=== PATIENT | male | born 1950 | race Caucasian/White ===

== ENCOUNTER 2018-01-10 13:27 | Day surgery (SDC) | payer MEDICARE ==
[~2018-01-10 13:27] MED LIST: AMLO5TAB2; BACL10TA; BUSP1TAB; COZA100T PO; DIGO0.12 PO; GABA300C5; SOTA120T
[2018-01-10] MEDS ORDERED: IOHEXOL 300 MG/ML 50 ML BTL (for RAD DIAG) OTHER ONE (13:28)
[2018-01-10 13:45] VITALS: BP 134/66; PULSE 66; RESP 18; TEMP 97.6; O2SAT 94
[2018-01-10] MEDS ORDERED: PRAD150C PO (14:06)
[2018-01-10 14:50] VITALS: BP 139/64; PULSE 72; RESP 20; TEMP 98.1; O2SAT 94
--- NOTE | 2018-01-10 15:37 | RADRPT ---
EXAM DATE/TIME: 01/10/2018 14:28 [facility] COMPARISON: No previous studies available for comparison. INDICATIONS : Patient presents with ventriculoperitoneal shunt in need of evaluation. 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 Fluoroscopically guided shuntogram. The risks, benefits and alternatives to the procedure were explained and verbal and written consent w as obtained. The site was prepped in sterile fashion. Full sterile technique was used, including ca p, mask, sterile gloves and gown and a large sterile sheet. Hand hygiene and 2% chlorhexidine and/or betadine/alcohol prep was utilized per protocol for cutaneous antisepsis. The skin and subcutaneous tissues were infiltrated with local anesthetic solution. With fluoroscopic guidance the previously placed shunt was injected with a 23 gauge butterfly needle and positive contrast was injected. Contrast does flow into the ventricular system though this does not freely flow way from the tip of t he catheter and may reflect adhesions. Despite vigorous pumping of the valve contrast could only be s een extending to the level of the diaphragm. CONCLUSION: 1. Patent ventricular limb though adhesions may be present. 2. Possible distal occlusion Ric Pulido MD on January 10, 2018 at 15:33 Board Certified Radiologist. This report was verified electronically.
--- NOTE | 2018-01-10 15:45 | PD.RAD ---
Post Procedure Progress Note Pre Procedure Diagnosis: (1) Shunt malfunction Post Procedure Diagnosis: (1) Shunt malfunction Procedure Date: Jan 10, 2018 Supervising Radiologist: Ric Pulido Proceduralist/Assist: Minor Cornelius RT(R), RT Cassandra(R) Anesthesia: Local Plan of Activity Patient to Unit: ROPU Patient Condition: Good See PACS Report for procedural detail/treatment Imaging Evaluation Shuntogram Ric Pulido MD Jan 10, 2018 15:45
== END 2018-01-10 15:45 | disposition home or self-care (01) ==
LOC: HROP 13:27 → HRIP 13:28 → HROP 15:45
PROVIDERS: ATTEND Neurological Surgery
DX: G91.2 (Idiopathic) normal pressure hydrocephalus (principal); I10 Essential (primary) hypertension; I48.91 Unspecified atrial fibrillation; Z98.2 Presence of cerebrospinal fluid drainage device
CPT/HCPCS: 61070; 75809; Q9967

== ENCOUNTER 2018-01-21 09:42 | Inpatient (IN) | payer MEDICARE ==
[~2018-01-21] VITALS: Ht 193 cm; Wt 111.8 kg
[~2018-01-21 09:42] MED LIST changes: -AMLO5TAB2; +AMLO5TAB2 PO; -BACL10TA; +BACL10TA PO; -GABA300C5; +GABA300C5 PO; +PRAD150C PO; -SOTA120T; +SOTA120T PO
--- NOTE | 2018-01-21 10:51 | RADRPT ---
EXAM DATE/TIME: 01/21/2018 10:25 [facility] COMPARISON: No previous studies available for comparison. INDICATIONS : Evaluate for pneumonia, pneumothorax or communicable disease. Pre op for shunt revision today. MEDICAL HISTORY : asthma SURGICAL HISTORY : shunt ENCOUNTER: Initial ACUITY: 1 day PAIN SCORE: 0/10 LOCATION: Bilateral chest FINDINGS: A single view of the chest demonstrates the lungs to be symmetrically aerated without evidence of mas s, infiltrate or effusion. The cardiomediastinal contours are unremarkable. Osseous structures are intact with some degenerative spurring of the dorsal spine. Shunt tubing traverses the right chest. CONCLUSION: No acute cardiopulmonary process. Chip Sifuentes MD on January 21, 2018 at 10:48 Board Certified Radiologist. This report was verified electronically.
[2018-01-21] MEDS ORDERED: SODIUM CHLORID 0.9% 500 ML IV PRN (11:00)
[2018-01-21] MEDS ORDERED: VANCOMYCIN 1000 MG/NS 250 ML ON-CALL IV SCH ×2 (11:00)
[2018-01-21] MEDS ORDERED: POVIDONE IODINE 5% (ANTISEPSIS KIT) 4 APPLICATIONS EACH NARE PRN (11:00)
[2018-01-21] MEDS ORDERED: CHLORHEXIDINE GLUCONATE 2 % 1 PACK (2 CLOTHS) TOPICAL PRN (11:00)
[2018-01-21] MEDS ORDERED: LACTATED RINGER'S 1000 ML IV PRN (11:00)
[2018-01-21] MEDS: SODIUM CHLOR 0.9% 1000 ML INJ 1,000 ML IV SCH (11:00)
[2018-01-21] MEDS ORDERED: METOPROLOL TARTRATE 25 MG TAB PO PRN (11:00)
[2018-01-21] MEDS ORDERED: PRAD150C PO (11:13)
[2018-01-21] MEDS ORDERED: AMBI10TA PO (11:13)
[2018-01-21] MEDS ORDERED: TOPI50TA7 PO (11:13)
[2018-01-21] MEDS ORDERED: METH20TA PO (11:13)
[2018-01-21] MEDS ORDERED: LOSA100T3 PO (11:13)
[2018-01-21] MEDS ORDERED: HYDR-3583 PO (11:13)
[2018-01-21] MEDS ORDERED: METH20TA3 PO (11:13)
[2018-01-21 11:31] LABS: AUTOMATED NEUTROPHIL # 5.7 TH/MM3 (1.8-7.7); BASOPHIL # 0.1 TH/MM3 (0-0.2); BASOPHIL % 0.8 % (0.0-2.0); EOSINOPHIL # 0.3 TH/MM3 (0-0.4); EOSINOPHIL % 3.2 % (0.0-4.0); HEMATOCRIT 49.8 % (39.0-51.0); HEMOGLOBIN 16.6 GM/DL (13.0-17.0); LYMPH % 15.5 % (9.0-44.0); LYMPHOCYTE # 1.2 TH/MM3 (1.0-4.8); MEAN CELL VOLUME 84.7 FL (80.0-100.0); MEAN CORPUSCULAR HEMOGLOBIN 28.3 PG (27.0-34.0); MEAN CORPUSCULAR HGB CONC 33.4 % (32.0-36.0); MEAN PLATELET VOLUME 7.4 FL (7.0-11.0); MONO % 7.6 % (0.0-8.0); MONOCYTE # 0.6 TH/MM3 (0-0.9); NEUT % 72.9 % (16.0-70.0); PLATELET COUNT 160 TH/MM3 (150-450); RED BLOOD COUNT 5.88 MIL/MM3 (4.50-5.90); RED CELL DISTRIBUTION WIDTH 15.9 % (11.6-17.2); WHITE BLOOD COUNT 7.9 TH/MM3 (4.0-11.0)
[2018-01-21 11:32] LABS: BILIRUBIN, URINE NEG (NEG); BLOOD, URINE NEG (NEG); GLUCOSE,URINE NEG (NEG); HYALINE CAST, URINE 2 /lpf (RARE); KETONE, URINE NEG (NEG); MUCUS URINE FEW /lpf (OCC); NITRITE,URINE NEG (NEG); URINE COLOR YELLOW (YELLW/STRAW); URINE LEUKOCYTE ESTERASE NEG (NEG)
[2018-01-21 11:34] LABS: INTERNATIONAL NORMALIZED RATIO 1.1 RATIO; PROTHROMBIN TIME - PATIENT 11.4 SEC (9.8-11.6)
[2018-01-21] MEDS ORDERED: APREPITANT 40 MG CAP ONE (11:39)
[2018-01-21 11:41] LABS: ALBUMIN 3.7 GM/DL (3.4-5.0); AST (GOT) 14 U/L (15-37); BICARBONATE 24.9 MEQ/L (21.0-32.0); BLOOD UREA NITROGEN 18 MG/DL (7-18); CALCIUM 8.6 MG/DL (8.5-10.1); CHLORIDE 108 MEQ/L (98-107); CREATININE 1.35 MG/DL (0.60-1.30); GLOMERULAR FILTRATION RATE 53 ML/MIN (>89); GLUCOSE,RANDOM 82 MG/DL (74-106); SODIUM (NA) 142 MEQ/L (136-145)
[2018-01-21 11:45] LABS: ALKALINE PHOSPHATASE 55 U/L (45-117); ALT (GPT) 21 U/L (12-78); TOTAL BILIRUBIN ADULT 0.9 MG/DL (0.2-1.0); TOTAL PROTEIN 6.9 GM/DL (6.4-8.2)
[2018-01-21] MEDS ORDERED: SUCCINYLCHOLINE CHLORIDE 100 MG/5 ML SYRINGE IV PUSH ONE (12:00)
[2018-01-21] MEDS ORDERED: ePHEDrine/NS 25 MG/5 ML SYRINGE IV ONE (12:00)
[2018-01-21] MEDS ORDERED: ROCURONIUM INJ 50 MG/5 ML SYRINGE IV PUSH ONE (12:00)
[2018-01-21] MEDS ORDERED: PROPOFOL 200 MG/20 ML AMP IV ONE (12:00)
[2018-01-21] MEDS ORDERED: LIDOCAINE HCL 1% PF 5 ML SYRINGE OTHER ONE (12:00)
[2018-01-21] MEDS ORDERED: LACTATED RINGER'S 1000 ML INJ 1,000 ML IV ONE (12:00)
[2018-01-21] MEDS ORDERED: ONDANSETRON HCL 4 MG/2 ML VIAL IV PUSH ONE (12:00)
[2018-01-21] MEDS ORDERED: NEOSTIGMINE 5 MG/5 ML SYRINGE IV PUSH ONE (12:00)
[2018-01-21] MEDS ORDERED: DEXAMETHASONE SOD PHOS 4 MG/ML VIAL IV ONE (12:00)
[2018-01-21] MEDS ORDERED: GLYCOPYRROLATE 1 MG/5 ML SYRINGE IV PUSH ONE (12:00)
[2018-01-21] MEDS ORDERED: PHENYLEPH/NS 1000 MCG/10 ML SYR IV ONE (12:00)
[2018-01-21] MEDS ORDERED: THROMBIN (TOPICAL) 5,000 UNIT VIAL ONE (13:02)
[2018-01-21] MEDS ORDERED: GELFOAM SIZE 100 ONE (13:02)
[2018-01-21] MEDS ORDERED: GENTAMICIN SULFATE 80 MG/2 ML VIAL ONE (13:02)
[2018-01-21] MEDS ORDERED: LIDOCAINE 1%/EPINEPHrine 1:100,000 SOLN 50 ML VIAL ONE (13:02)
[2018-01-21] MEDS ORDERED: BACITRACIN TOP OINT 15 GM TUBE ONE (13:02)
--- NOTE | 2018-01-21 13:54 | EKG ---
Date Performed: 01/21/2018 Time Performed: 10:42:25 PTAGE: 67 years EKG: SINUS BRADYCARDIA LEFT ANTERIOR FASCICULAR BLOCK NONSPECIFIC ST & T-WAVE ABNORMALITY ABNORM AL ECG PREVIOUS TRACING : 08/22/2006 14.26 DOCTOR: Dennis Batista Interpretating Date/Time 01/21/2018 13:52:33
[2018-01-21] MEDS ORDERED: APREPITANT 40 MG CAP PO ONE (14:00)
[2018-01-21] MEDS ORDERED: DO NOT ADM ANY ANTICOAGULANT DRUGS PRN (15:59)
[2018-01-21] MEDS ORDERED: ACETAMINOPHEN 325 MG TAB PO PRN (16:30)
[2018-01-21] MEDS ORDERED: MORPHINE SULFATE 4 MG/ML INJ IV PUSH PRN (16:30)
[2018-01-21] MEDS ORDERED: ACETAMINOPHEN/HYDROcodone 325 MG/10 MG TAB PO PRN (16:30)
[2018-01-21] MEDS ORDERED: ceFAZolin 2 GM PREMIX 50 ML IV SCH (16:30)
--- NOTE | 2018-01-21 16:36 | PD.OP ---
Operative Report Date of Surgery: January 21, 2018 Preoperative Diagnosis: ASPHALT LAYER shunt malfunction Postoperative Diagnosis: ASPHALT LAYER shunt malfunction Procedure: Ventriculoperitoneal shunt Anesthesia: general endotracheal Surgeon: Daniel Villanueva Hot Worker(s): Sandrita garg Operation and Findings: INDICATIONS FOR PROCEDURE: Mr Dalton is a 67 year old male with history of hydrocephalus and a priorly placed ASPHALT LAYER shunt who presented with progressive gait imbalance and short term memory loss, and classic symptoms of shunt malfunrction. His condition was getting progressively worse. He underwent evaluation with a shuntogram which demonstrated occlusion of his shunt. A ventriculoperitoneal shunt was indicated The [id number] details of the procedure, its indications, alternatives, risks , and potential complications of the surgery were fully discussed with the patient and his family. They fully understood. All their questions were answered. No guarantees were given. They voiced requesting the surgery and signed informed consent.They were offered the alternative of continuing nonsurgical treatment. DETAILS OF THE SURGICAL PROCEDURE: After the induction of general anesthesia, endotracheal intubation was performed. A Whitfield catheter, bilateral ARI hose and sequential compression devices were placed and kept throughout the procedure. The patient was positioned supine on a 30-80 table with the head over a gel doughnut. All pressure points were carefully padded with eggcrate mattress. The right frontotemporal parietal area was shaved prepped and draped in the usual sterile fashion, as well as the neck, chest and abdomen. Initially, an incision was made adjacent to his prior shunt with a #10 blade, and his prior valve was exposed with the Bovie. The valve was then disconnected from the [peritoneal catheter, and there was minimal flow from the valve. The peritoneal catheter was assessed using a manometer, there was a slow flow with clossing pressure of 15 cm H20, despite flushing the catheter. The valve was then disconnected from the ventricular catheter, with only minimal CSF flow. I attempted to remove and replace the old ventricular catheter , but it was very scared down. The initial intention was to replace the ventricular catheter by a new catheter following the same tract. The catheter, however, could not be pulled out of the brain despite considerable force. Due to the concern of causing intraventricular hemorrhage, it was not deemed safe to remove the old ventricular catheter which appeared to be attached to the choroid plexus. Placement of a new ventricular catheter became necessary An incision was made in the patient's right upper quadrant with a #10 blade and the dissection was carried out through the subcutaneous tissue and Christo's fascia. The rectus sheath was carefully opened with Metzenbaum scissors and the rectus muscles were split along its fibers. The posterior rectus sheath was elevated and carefully opened. The peritoneum was elevated with mosquitoes and opened in the standard fashion. The peritoneal cavity was visualized and exposed. A pursestring suture was placed around the peritoneal opening. Using a tunneler a subcutaneous tunnel was created connecting the abdominal incision with the planned head incision. A small incision was made in the right frontal area and a self-retaining retractor was placed in the incision. An entry point for the catheter was selected 90 mm posterior to the supraorbital rim and 25 mm lateral to the midline. A Midas Jossue was used to create the flavio hole. The dura was coagulated with the bipolar in a cruciform fashion. A peritoneal catheter was placed in the subcutaneous tunnel previously created and a pocket was created underneath the galea for placement of the valve. A Robinhood programmable valve has calibrated at a pressure of 100 mmHg and flushed according to the division roadmaster's instructions. The valve was secured to the proximal end of the peritoneal catheter using a 2-0 silk. Then, a ventricular catheter was advanced into the ventricular system. Due to the small size of the ventricles, it was difficult to obtain good flow of cerebrospinal fluid in the standard position requiring 3 different attempts. CSF with an increased opening pressure was finally obtained The catheter was connected to the valve and the connection secured with a 2-0 silk. Cerebrospinal fluid was noted to drip through the distal end of the peritoneal catheter. The old shunt system was connected and left in place, as it was was partially functional and was deemed necessary due to the size of the ventricles. The peritoneal catheter was placed in the peritoneal cavity under direct visualization. The pursestring suture was carefully adjusted with special care not to strangulate the catheter. The rectus sheath was closed using interrupted 2-0 Vicryl suture. The Christo's fascia was approximated with 3-0 Vicryl, and the subcutaneous with 3-0 Vicryl. The skin was closed with running subcuticular 4-0 Vicryl in the abdomen. The skin incision was closed using interrupted 3-0 Vicryl for the galea and katlin to the skin. At the end of the procedure, the sponge, needle and instrument counts were all correct. The estimated blood was less than 50 cc. No blood transfusion was given. The patient received preoperative prophylactic antibiotics. The patient was then extubated and transferred to the recovery room in stable condition. Daniel Villanueva MD January 21, 2018 16:36
[2018-01-21] MEDS: NS + KCL 20 MEQ INJ 1,000 ML IV SCH (16:48)
[2018-01-21] MEDS ORDERED: *morphine SULFATE 4 MG/ML PERIprocedure ONLY ONE ×3 (16:50→18:29)
[2018-01-21] MEDS ORDERED: PILL SPLITTER OTHER PRN (17:00)
[2018-01-21] MEDS: TOPIRAMATE 25 MG TAB PO SCH (18:56)
[2018-01-21] MEDS: BACLOFEN 10 MG TAB PO SCH (18:56)
[2018-01-21] MEDS: ACETAMINOPHEN/HYDROcodone 325 MG/10 MG TAB PO PRN (18:57)
[2018-01-21] MEDS: SOTALOL HCL 80 MG TAB PO SCH (19:29)
[2018-01-21 19:44] LABS: TOTAL PROTEIN,CSF 78.6 MG/DL (15.0-45.0)
[2018-01-21 20:22] VITALS: BP 124/58; PULSE 62; RESP 20; TEMP 97.4; O2SAT 96
[2018-01-21 21:00] LABS: CSF EOSINOPHILS 1 %; CSF LYMPHOCYTES 19 %; CSF MONOCYTES 4 %; CSF NEUTROPHILS 76 %
[2018-01-21 21:02] LABS: RBC TUBE #1 17569 /MM3; SUPERNATE COLOR TUBE #1 CLEAR (CLEAR); VOLUME TUBE # 1 2.8 ML; WBC TUBE #1 133 /MM3 (0-10)
[2018-01-21] MEDS ORDERED: ONDANSETRON HCL 4 MG/2 ML VIAL IV PUSH PRN (21:15)
[2018-01-21] MEDS: GABAPENTIN 300 MG CAP PO SCH (21:39)
[2018-01-21 22:12] VITALS: PULSE 65
[2018-01-22] VITALS (9 sets, daily range): BP systolic 113–135; BP diastolic 55–64; PULSE 52–74; RESP 18–20; TEMP 97.5–98.8; O2SAT 93–97
[2018-01-22] MEDS: VANCOMYCIN 1,000 MG/NS 250 ML IV SCH ×4 (02:20→17:01)
[2018-01-22] MEDS: NS + KCL 20 MEQ INJ 1,000 ML IV SCH (02:20)
[2018-01-22] MEDS: ACETAMINOPHEN/HYDROcodone 325 MG/10 MG TAB PO PRN ×2 (05:14→21:35)
[2018-01-22] MEDS: METHYLPHENIDATE HCL 10 MG TAB PO SCH ×2 (06:44→16:44)
[2018-01-22] MEDS ORDERED: HYDR-3516 PO (09:28)
[2018-01-22] MEDS: GABAPENTIN 300 MG CAP PO SCH ×2 (09:51→21:35)
[2018-01-22] MEDS: LOSARTAN 50 MG TAB PO SCH (09:51)
[2018-01-22] MEDS: DIGOXIN 0.125 MG TAB PO SCH (09:51)
[2018-01-22] MEDS: PANTOPRAZOLE SODIUM 40 MG VIAL IVP SCH (09:51)
[2018-01-22] MEDS: BACLOFEN 10 MG TAB PO SCH ×4 (09:52→18:00)
[2018-01-22] MEDS: SOTALOL HCL 80 MG TAB PO SCH ×3 (09:52→17:06)
[2018-01-22] MEDS: TOPIRAMATE 25 MG TAB PO SCH ×3 (09:52→17:05)
--- NOTE | 2018-01-22 10:57 | HHI.NSPN ---
(Rose Pehlps) Note Status Status: Progress Note (Rose Phelps) Interval History Interval History Mr. Dalton is a 67-year-old male who underwent placement of new right frontal ventriculoperitoneal shunt for normal pressure hydrocephalus with a nonfunctioning HATCHERY WORKER shunt on 01/21/18. 01/22: Awaiting follow-up CT brain. Patient reports of acute onset of new left upper extremity weakness. (Rose Phelps) Labs, Micro, & Vital Signs Results Date Time Temp Pulse Resp B/P (MAP) Pulse Ox O2 Delivery O2 Flow Rate FiO2 01/22/18 07:45 98.1 56 19 123/60 (81) 97 01/22/18 05:29 97.8 59 18 113/59 (77) 97 01/22/18 03:58 52 01/22/18 00:54 21 01/22/18 00:24 98.8 60 18 114/55 (74) 95 01/22/18 00:00 57 01/21/18 22:12 65 01/21/18 20:22 97.4 62 20 124/58 (80) 96 01/21/18 18:30 98.4 65 16 121/58 (79) 98 Nasal Cannula 2 01/21/18 18:00 58 18 114/57 (76) 97 Nasal Cannula 2 01/21/18 17:30 63 18 125/59 (81) 98 Nasal Cannula 2 01/21/18 17:00 48 12 131/60 (83) 99 Nasal Cannula 2 01/21/18 16:45 48 12 125/58 (80) 100 Nasal Cannula 2 01/21/18 16:30 54 18 123/59 (80) 100 Nasal Cannula 2 01/21/18 16:15 51 12 125/58 (80) 100 Nasal Cannula 3 01/21/18 16:00 97.6 60 12 126/61 (82) 100 Nasal Cannula 3 01/21/18 11:17 97.9 60 16 119/68 (85) 96 Constitutional Vital Signs Date Time Temp Pulse Resp B/P (MAP) Pulse Ox O2 Delivery O2 Flow Rate FiO2 01/22/18 07:45 98.1 56 19 123/60 (81) 97 01/22/18 05:29 97.8 59 18 113/59 (77) 97 01/22/18 03:58 52 01/22/18 00:54 21 01/22/18 00:24 98.8 60 18 114/55 (74) 95 01/22/18 00:00 57 01/21/18 22:12 65 01/21/18 20:22 97.4 62 20 124/58 (80) 96 01/21/18 18:30 98.4 65 16 121/58 (79) 98 Nasal Cannula 2 01/21/18 18:00 58 18 114/57 (76) 97 Nasal Cannula 2 01/21/18 17:30 63 18 125/59 (81) 98 Nasal Cannula 2 01/21/18 17:00 48 12 131/60 (83) 99 Nasal Cannula 2 01/21/18 16:45 48 12 125/58 (80) 100 Nasal Cannula 2 01/21/18 16:30 54 18 123/59 (80) 100 Nasal Cannula 2 01/21/18 16:15 51 12 125/58 (80) 100 Nasal Cannula 3 01/21/18 16:00 97.6 60 12 126/61 (82) 100 Nasal Cannula 3 01/21/18 11:17 97.9 60 16 119/68 (85) 96 (Rose Phelps) Physical Exam Mr. Dalton is alert, awake and oriented to time, place and person. Speech is fluent. Cranial nerve examination: pupils equal, round and reactive to light. Extra- ocular movements are intact. Facial motor are normal and symmetrical. Sternocleidomastoid and trapezius muscles are symmetrical. Other cranial nerves are intact. Wound bandaged, clean and dry. Neck is soft and supple with a good range of motion without pain. Muscle strength 4 left deltoid, 4-/5 biceps, triceps, fork assembler, moves right upper and bilateral lower extremities with good strength. Storm's negative bilaterally bilateral plantar flexion response (Rose Phelps) Medications Current Medications Current Medications Medications (Trade) Dose Ordered Sig/Mojgan Route PRN Reason Start Time Stop Time Status Last Admin Dose Admin Vancomycin HCl 1000 mg/Sodium Chloride 250 ml @ 250 mls/hr PLYWOOD STOCK GRADER IV 01/21/18 11:00 01/24/18 10:59 01/21/18 13:31 Sodium Chloride 1,000 ml @ 30 mls/hr Q24H IV 01/21/18 11:00 Lactated Ringer's 1,000 ml @ 30 mls/hr Q24H PRN IV SEE LABEL COMMENTS 01/21/18 11:00 01/24/18 10:59 01/21/18 11:00 Sodium Chloride 500 ml @ 30 mls/hr [id number] PRN IV SEE LABEL COMMENTS 01/21/18 11:00 01/24/18 10:59 Metoprolol Tartrate (Lopressor) 25 mg PLYWOOD STOCK GRADER PRN PO SEE LABEL COMMENTS 01/21/18 11:00 01/24/18 10:59 Povidone Iodine (Betadine 5% Antisepsis Kit) 1 applic PLYWOOD STOCK GRADER PRN EACH NARE SEE LABEL COMMENTS 01/21/18 11:00 01/24/18 10:59 01/21/18 11:00 Chlorhexidine Gluconate (Chlorhexidine 2% Cloth) 3 pack PLYWOOD STOCK GRADER PRN TOPICAL SEE LABEL COMMENTS 01/21/18 11:00 01/24/18 10:59 01/21/18 10:45 Potassium Chloride/Sodium Chloride 1,000 ml @ 100 mls/hr Q10H IV 01/21/18 16:25 01/22/18 02:20 Pantoprazole Sodium (Protonix Inj) 40 mg DAILY IVP 01/22/18 09:00 01/22/18 09:51 Acetaminophen/ Hydrocodone Bitart (Dougherty 10-325 Mg) 1 tab Q4H PRN PO PAIN SCALE 1 TO 5 01/21/18 16:30 Acetaminophen/ Hydrocodone Bitart (Dougherty 10-325 Mg) 2 tab Q4H PRN PO PAIN SCALE 6 TO 10 01/21/18 16:30 01/22/18 05:14 Morphine Sulfate (Morphine Inj) 2 mg Q2H PRN IV PUSH PAIN SCALE 1 TO 6 01/21/18 16:30 Morphine Sulfate (Morphine Inj) 4 mg Q2H PRN IV PUSH PAIN SCALE 7 TO 10 01/21/18 16:30 Acetaminophen (Tylenol) 650 mg Q4H PRN PO TEMPERATURE > 101.5 F 01/21/18 16:30 Amlodipine Besylate (Norvasc) 5 mg DAILY PO 01/22/18 09:00 Baclofen (Lioresal) 20 mg TID PO 01/21/18 18:00 01/22/18 09:52 Digoxin (Lanoxin) 0.125 mg DAILY PO 01/22/18 09:00 01/22/18 09:51 Gabapentin (Neurontin) 600 mg BID PO 01/21/18 21:00 01/22/18 09:51 Methylphenidate HCl (Ritalin Ir) 20 mg BIDAC PO 01/22/18 07:00 01/22/18 06:44 Topiramate (Topamax) 50 mg TID PO 01/21/18 18:00 01/22/18 09:52 Zolpidem Tartrate (Ambien) 10 mg HS PRN PO INSOMNIA 01/21/18 16:30 Hydrochlorothiazide (Microzide) 12.5 mg DAILY PO 01/22/18 09:00 Methylphenidate HCl (Methylin Sr) 20 mg TIDAC PO 01/21/18 17:00 Sotalol HCl (Betapace) 120 mg TID PO 01/21/18 18:00 01/22/18 09:52 Miscellaneous Information ([facility] [place] [facility]) ALL NURSING DEPARTME... UNSCH PRN .XX SEE LABEL COMMENTS 01/21/18 15:59 01/22/18 15:58 Miscellaneous (Pill Splitter) 1 ea UNSCH PRN OTHER SEE LABEL COMMENTS 01/21/18 17:00 Losartan Potassium (Cozaar) 100 mg DAILY PO 01/22/18 09:00 01/22/18 09:51 Vancomycin HCl 1000 mg/Sodium Chloride 250 ml @ 250 mls/hr Q12H IV 01/22/18 02:00 01/22/18 14:59 01/22/18 02:20 Ondansetron HCl (Zofran Inj) 4 mg Q8H PRN IV PUSH NAUSEA 01/21/18 21:15 (Rose Phelps) Medical Decision Making MDM Remarks 67 y/o male status post placement of new right frontal HATCHERY WORKER shunt due to nonfunctioning shunt Normal pressure hydrocephalus Acute left upper extremity paresis (Rose Phelps) Plan Plan Remarks Awaiting follow-up CT brain PT, start OT SCDs and teds for DVT prophylaxis Protonix for ulcer prophylaxis Change surgical dressing (Rose Phelps) Attending Statement The exam, history, and the medical decision-making described in the above note were completed with the assistance of the mid-level provider. I reviewed and agree with the findings presented. I attest that I had a [id number] encounter with the patient on the same day, and personally performed and documented my assessment and findings in the medical record. (Daniel Villanueva MD) Rose Phelps January 22, 2018 10:57 Daniel Villanueva MD January 25, 2018 13:33
--- NOTE | 2018-01-22 10:58 | RADRPT ---
EXAM DATE/TIME: 01/22/2018 10:32 [facility] COMPARISON: No previous studies available for comparison. INDICATIONS : Post-operative evaluation of shunt revision. RADIATION DOSE: 56.35 CTDIvol (mGy) MEDICAL HISTORY : Cardiovascular disease. Hypertension. 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 ENCOUNTER: Initial ACUITY: 1 day PAIN SCALE: 2/10 LOCATION: Bilateral cranial TECHNIQUE: Multiple contiguous axial images were obtained of the head. Using automated exposure control and adj ustment of the mA and/or kV according to patient size, radiation dose was kept as low as reasonably a chievable to obtain optimal diagnostic quality images. DICOM format image data is available electro nically for review and comparison. FINDINGS: A. right frontal ventriculostomy appears recent with some pneumocephalus present. The catheter extend s into the posterior horn of the left lateral ventricle. A right parietal shunt is also present exten ding into the trigone region on the ipsilateral right side. The ventricles are decompressed. There is no evidence of brain mass or hemorrhage. There is nothing to suggest acute infarction or other acute process. Extracranial structures are otherwise grossly benign and intact. CONCLUSION: Satisfactory appearance post ventriculostomy Jhony Linn MD on January 22, 2018 at 10:52 Board Certified Radiologist. This report was verified electronically.
[2018-01-22] MEDS: MORPHINE SULFATE 4 MG/ML INJ IV PUSH PRN ×2 (11:08→16:37)
[2018-01-22] MEDS: METHYLPHENIDATE HCL 10 MG EXTENDED RELEASE TAB PO SCH ×3 (11:28→18:53)
[2018-01-22] MEDS: amLODIPine BESYLATE 5 MG TAB PO SCH (11:35)
[2018-01-22] MEDS: HYDROCHLOROTHIAZIDE 12.5 MG CAP PO SCH (11:35)
[2018-01-22] MEDS: DEXAMETHASONE SOD PHOS 4 MG/ML VIAL IV PUSH SCH ×2 (17:05→23:27)
[2018-01-22] MEDS: ZOLPIDEM TARTRATE 10 MG TAB PO PRN (23:26)
[2018-01-23] VITALS (8 sets, daily range): BP systolic 115–169; BP diastolic 59–78; PULSE 55–105; RESP 18–22; TEMP 97.8–98.4; O2SAT 91–100
[2018-01-23] MEDS: ACETAMINOPHEN/HYDROcodone 325 MG/10 MG TAB PO PRN ×4 (06:44→21:35)
[2018-01-23] MEDS: METHYLPHENIDATE HCL 10 MG TAB PO SCH ×2 (06:44→15:18)
[2018-01-23] MEDS: DEXAMETHASONE SOD PHOS 4 MG/ML VIAL IV PUSH SCH ×3 (06:44→17:11)
[2018-01-23] MEDS: PANTOPRAZOLE SODIUM 40 MG VIAL IVP SCH (08:41)
[2018-01-23] MEDS: BACLOFEN 10 MG TAB PO SCH ×3 (08:41→17:11)
[2018-01-23] MEDS: LOSARTAN 50 MG TAB PO SCH (08:42)
[2018-01-23] MEDS: SOTALOL HCL 80 MG TAB PO SCH ×3 (08:42→17:11)
[2018-01-23] MEDS: HYDROCHLOROTHIAZIDE 12.5 MG CAP PO SCH (08:43)
[2018-01-23] MEDS: TOPIRAMATE 25 MG TAB PO SCH ×3 (08:43→17:11)
[2018-01-23] MEDS: GABAPENTIN 300 MG CAP PO SCH ×2 (08:43→21:37)
[2018-01-23] MEDS: DIGOXIN 0.125 MG TAB PO SCH (08:44)
[2018-01-23] MEDS: METHYLPHENIDATE HCL 10 MG EXTENDED RELEASE TAB PO SCH ×3 (08:44→17:11)
[2018-01-23] MEDS: amLODIPine BESYLATE 5 MG TAB PO SCH (08:47)
--- NOTE | 2018-01-23 10:33 | RADRPT ---
EXAM DATE/TIME: 01/23/2018 10:00 [facility] COMPARISON: No previous studies available for comparison. INDICATIONS : Left upper extremity weakness since shunt revision yesterday. MEDICAL HISTORY : Hypertension. Renal calculi. Hydrocephalus. SURGICAL HISTORY : Fusion, cervical. Umbilical hernia repair. Shunt placement and revision. Right ankle repair. Sinu s surgery. Kidney stone removal. ENCOUNTER: Subsequent ACUITY: 2 day PAIN SCORE: 0/10 LOCATION: head. TECHNIQUE: Multiplanar, multisequence MRI of the brain was performed without contrast. FINDINGS: There is a right frontal ventriculostomy with the tip in the posterior horn of the left lateral ventr icle. There is also a right parietal shunt extending into the right trigone region. There is some abn ormal signal around the right frontal tube track and also around the tract extending into the right b derik ganglia which may be from previous shunt. No recent infarct. On the sagittal images focal areas of presumed encephalomalacia is seen in the body and posterior asp ect of the corpus callosum. There are mild chronic white matter ischemic changes. CONCLUSION: 1. Multiple shunts as above. There is some linear signal abnormality also extending into the right ba holly ganglia probably from previous shunt attempt. No mass effect or shift. No hydrocephalus. 2 focal areas of presumed encephalomalacia in the body and posterior aspect of the corpus callosum. Zen Goldsmith MD on January 23, 2018 at 10:24 Board Certified Radiologist. This report was verified electronically.
[2018-01-23] MEDS: SODIUM CHLOR 0.9% 1000 ML INJ 1,000 ML IV SCH (10:47)
--- NOTE | 2018-01-23 11:09 | RADRPT ---
EXAM DATE/TIME: 01/23/2018 10:00 [facility] COMPARISON: No previous studies available for comparison. INDICATIONS : Left upper extremity weakness since shunt revision yesterday. MEDICAL HISTORY : Hypertension. Renal calculi. Hydrocephalus. SURGICAL HISTORY : Fusion, cervical. Shunt placement and revision. Right ankle repair. Sinus surgery. Kidney ston e removal. ENCOUNTER: Subsequent ACUITY: 2 day PAIN SCORE: 0/10 LOCATION: neck. TECHNIQUE: Multiplanar, multisequence MRI examination of the cervical spine was performed. FINDINGS: At C2-3 there is a mild disc protrusion. No stenosis. At C3-4 there is a posterior disc osteophyte complex effacing the thecal sac without cord compression . Mild foraminal stenosis. At C4-5 posterior disc osteophyte complex results in mild AP canal stenosis and mild flattening of th e cord. Mild foraminal encroachment. At C5-6 there is previous fusion without stenosis. At C6-7 there is a mild posterior disc protrusion with mild AP canal stenosis and mild impression on the anterior surface the cord. No significant foraminal stenosis. At C7-T1 there is a mild central bulge or protrusion with mild impression on the anterior surface of the cord. No foraminal stenosis. CONCLUSION: 1. At C4-5, and C6-7 and C7-T1 there are small posterior disc protrusions and osteophytic ridging res ulting in mild AP canal stenosis and flattening of the anterior surface of the cord. 2. Previous fusion at C5-6 without stenosis. 3. Normal alignment of the cervical spine. No cord signal abnormality. Zen Goldsmith MD on January 23, 2018 at 11:04 Board Certified Radiologist. This report was verified electronically.
--- NOTE | 2018-01-23 11:49 | HHI.NSPN ---
(Rose Phelps) Note Status Status: Progress Note (Daniel Villanueva MD) Interval History Interval History Mr. Dalton is a 67-year-old male who underwent placement of new right frontal ventriculoperitoneal shunt for normal pressure hydrocephalus with a nonfunctioning DEPLOYMENT TECHNICIAN shunt on 01/21/18. 01/22: Awaiting follow-up CT brain. Patient reports of acute onset of new left upper extremity weakness. 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 completed MRI Brain and Cervical spine. (Rose Phelps) Labs, Micro, & Vital Signs Results Date Time Temp Pulse Resp B/P (MAP) Pulse Ox O2 Delivery O2 Flow Rate FiO2 01/23/18 08:00 97.8 61 18 135/64 (87) 96 01/23/18 07:10 98.2 55 19 128/62 (84) 100 01/23/18 00:30 60 01/23/18 00:00 97.8 65 22 115/59 (77) 96 01/22/18 21:26 58 01/22/18 20:00 98.4 68 18 135/64 (87) 96 01/22/18 15:38 97.5 74 20 118/58 (78) 95 01/22/18 12:11 98.3 64 20 117/57 (77) 93 Constitutional Vital Signs Date Time Temp Pulse Resp B/P (MAP) Pulse Ox O2 Delivery O2 Flow Rate FiO2 01/23/18 08:00 97.8 61 18 135/64 (87) 96 01/23/18 07:10 98.2 55 19 128/62 (84) 100 01/23/18 00:30 60 01/23/18 00:00 97.8 65 22 115/59 (77) 96 01/22/18 21:26 58 01/22/18 20:00 98.4 68 18 135/64 (87) 96 01/22/18 15:38 97.5 74 20 118/58 (78) 95 01/22/18 12:11 98.3 64 20 117/57 (77) 93 (Rose Phelps) Physical Exam Mr. Dalton is alert, awake and oriented to time, place and person. Speech is fluent. Cranial nerve examination: pupils equal, round and reactive to light. Extra- ocular movements are intact. Facial motor are normal and symmetrical. Sternocleidomastoid and trapezius muscles are symmetrical. Other cranial nerves are intact. Wound bandaged, clean and dry. Neck is soft and supple with a good range of motion without pain. 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 Storm's negative bilaterally, Plantars flexors bilaterally. bilateral plantar flexion response (Rose Phelps) Medications Current Medications Current Medications Medications (Trade) Dose Ordered Sig/Mojgan Route PRN Reason Start Time Stop Time Status Last Admin Dose Admin Vancomycin HCl 1000 mg/Sodium Chloride 250 ml @ 250 mls/hr UPS DRIVER IV 01/21/18 11:00 01/24/18 10:59 01/21/18 13:31 Sodium Chloride 1,000 ml @ 30 mls/hr Q24H IV 01/21/18 11:00 01/23/18 10:47 Lactated Ringer's 1,000 ml @ 0 mls/hr Q24H PRN IV SEE LABEL COMMENTS 01/21/18 11:00 01/21/18 11:00 Sodium Chloride 500 ml @ 30 mls/hr [id number] PRN IV SEE LABEL COMMENTS 01/21/18 11:00 01/24/18 10:59 Metoprolol Tartrate (Lopressor) 25 mg UPS DRIVER PRN PO SEE LABEL COMMENTS 01/21/18 11:00 01/24/18 10:59 Povidone Iodine (Betadine 5% Antisepsis Kit) 1 applic UPS DRIVER PRN EACH NARE SEE LABEL COMMENTS 01/21/18 11:00 01/24/18 10:59 01/21/18 11:00 Chlorhexidine Gluconate (Chlorhexidine 2% Cloth) 3 pack UPS DRIVER PRN TOPICAL SEE LABEL COMMENTS 01/21/18 11:00 01/24/18 10:59 01/21/18 10:45 Pantoprazole Sodium (Protonix Inj) 40 mg DAILY IVP 01/22/18 09:00 01/23/18 08:41 Acetaminophen/ Hydrocodone Bitart ([place] 10-325 Mg) 1 tab Q4H PRN PO PAIN SCALE 1 TO 5 01/21/18 16:30 Acetaminophen/ Hydrocodone Bitart ([place] 10-325 Mg) 2 tab Q4H PRN PO PAIN SCALE 6 TO 10 01/21/18 16:30 01/23/18 11:30 Morphine Sulfate (Morphine Inj) 2 mg Q2H PRN IV PUSH PAIN SCALE 1 TO 6 01/21/18 16:30 01/22/18 16:37 Morphine Sulfate (Morphine Inj) 4 mg Q2H PRN IV PUSH PAIN SCALE 7 TO 10 01/21/18 16:30 Acetaminophen (Tylenol) 650 mg Q4H PRN PO TEMPERATURE > 101.5 F 01/21/18 16:30 Amlodipine Besylate (Norvasc) 5 mg DAILY PO 01/22/18 09:00 01/23/18 08:47 Baclofen (Lioresal) 20 mg TID PO 01/21/18 18:00 01/23/18 08:41 Digoxin (Lanoxin) 0.125 mg DAILY PO 01/22/18 09:00 01/23/18 08:44 Gabapentin (Neurontin) 600 mg BID PO 01/21/18 21:00 01/23/18 08:43 Methylphenidate HCl (Ritalin Ir) 20 mg BIDAC PO 01/22/18 07:00 01/23/18 06:44 Topiramate (Topamax) 50 mg TID PO 01/21/18 18:00 01/23/18 08:43 Zolpidem Tartrate (Ambien) 10 mg HS PRN PO INSOMNIA 01/21/18 16:30 01/22/18 23:26 Hydrochlorothiazide (Microzide) 12.5 mg DAILY PO 01/22/18 09:00 01/23/18 08:43 Methylphenidate HCl (Methylin Sr) 20 mg TIDAC PO 01/21/18 17:00 01/23/18 11:30 Sotalol HCl (Betapace) 120 mg TID PO 01/21/18 18:00 01/23/18 08:42 Miscellaneous (Pill Splitter) 1 ea UNSCH PRN OTHER SEE LABEL COMMENTS 01/21/18 17:00 Losartan Potassium (Cozaar) 100 mg DAILY PO 01/22/18 09:00 01/23/18 08:42 Ondansetron HCl (Zofran Inj) 4 mg Q8H PRN IV PUSH NAUSEA 01/21/18 21:15 Dexamethasone Sodium Phosphate (Decadron Inj) 4 mg Q6HR IV PUSH 01/22/18 18:00 01/23/18 11:31 (Rose Phelps) Medical Decision Making MDM Remarks 67 y/o male status post placement of new right frontal DEPLOYMENT TECHNICIAN shunt due to nonfunctioning shunt Normal pressure hydrocephalus Acute left upper extremity paresis (Rose Phelps) Plan Plan Remarks MRI Brain and C-spine reviewed by Dr. Villanueva, no acute CVA or significant stenosis, reprogrammed new DEPLOYMENT TECHNICIAN shunt to 100 mm H20, unable to reprogram old shunt due to incision PT, OT eval, dw nursing bladder scan prn if cannot void Dr. Vill[facility]ue[facility] (Rose Phelps) Attending Statement The exam, history, and the medical decision-making described in the above note were completed with the assistance of the mid-level provider. I reviewed and agree with the findings presented. I attest that I had a [id number] encounter with the patient on the same day, and personally performed and documented my assessment and findings in the medical record. (Daniel Villanueva MD) Rose Phelps January 23, 2018 11:49 Daniel Villanueva MD January 25, 2018 13:35
[2018-01-24] VITALS (8 sets, daily range): BP systolic 112–162; BP diastolic 62–77; PULSE 54–77; RESP 18; TEMP 97.3–98.7; O2SAT 94–99
[2018-01-24] MEDS: DEXAMETHASONE SOD PHOS 4 MG/ML VIAL IV PUSH SCH ×5 (00:10→23:07)
[2018-01-24] MEDS: ZOLPIDEM TARTRATE 10 MG TAB PO PRN (02:23)
[2018-01-24] MEDS: METHYLPHENIDATE HCL 10 MG TAB PO SCH ×2 (05:47→15:59)
[2018-01-24] MEDS: GABAPENTIN 300 MG CAP PO SCH ×3 (08:49→17:14)
[2018-01-24] MEDS: PANTOPRAZOLE SODIUM 40 MG VIAL IVP SCH (08:49)
[2018-01-24] MEDS: LOSARTAN 50 MG TAB PO SCH (08:50)
[2018-01-24] MEDS: amLODIPine BESYLATE 5 MG TAB PO SCH (08:50)
[2018-01-24] MEDS: HYDROCHLOROTHIAZIDE 12.5 MG CAP PO SCH (08:50)
[2018-01-24] MEDS: METHYLPHENIDATE HCL 10 MG EXTENDED RELEASE TAB PO SCH ×3 (08:50→17:14)
[2018-01-24] MEDS: BACLOFEN 10 MG TAB PO SCH ×3 (08:50→17:14)
[2018-01-24] MEDS: TOPIRAMATE 25 MG TAB PO SCH ×3 (08:50→17:14)
[2018-01-24] MEDS: DIGOXIN 0.125 MG TAB PO SCH (08:50)
[2018-01-24] MEDS: SOTALOL HCL 80 MG TAB PO SCH ×3 (08:50→17:14)
[2018-01-24] MEDS: SODIUM CHLOR 0.9% 1000 ML INJ 1,000 ML IV SCH (10:16)
--- NOTE | 2018-01-24 10:58 | HHI.NSPN ---
(Rose Phelps) Note Status Status: Progress Note (Rose Phelps) Interval History Interval History Mr. Dalton is a 67-year-old male who underwent placement of new right frontal ventriculoperitoneal shunt for normal pressure hydrocephalus with a nonfunctioning LATHE SET UP OPERATOR shunt on 01/21/18. 01/22: Awaiting follow-up CT brain. Patient reports of acute onset of new left upper extremity weakness. 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 completed MRI Brain and Cervical spine. 01/24: LATHE SET UP OPERATOR shunt reprogrammed yesterday to 100 mm H20. Today patient feels there has been some improvement in left arm weakness, ambulated with PT this morning. He is voiding. (Rose Phelps) Labs, Micro, & Vital Signs Results Date Time Temp Pulse Resp B/P (MAP) Pulse Ox O2 Delivery O2 Flow Rate FiO2 01/24/18 09:00 75 01/24/18 08:00 98.7 75 18 128/62 (84) 96 01/24/18 04:00 97.3 56 18 112/64 (80) 96 01/24/18 00:00 98.7 62 18 142/64 (90) 96 01/24/18 00:00 64 01/23/18 20:00 98.4 105 18 132/59 (83) 91 01/23/18 16:30 72 01/23/18 16:15 98.4 66 18 146/65 (92) 94 01/23/18 12:06 98.1 69 18 169/78 (108) 95 Constitutional Vital Signs Date Time Temp Pulse Resp B/P (MAP) Pulse Ox O2 Delivery O2 Flow Rate FiO2 01/24/18 09:00 75 01/24/18 08:00 98.7 75 18 128/62 (84) 96 01/24/18 04:00 97.3 56 18 112/64 (80) 96 01/24/18 00:00 98.7 62 18 142/64 (90) 96 01/24/18 00:00 64 01/23/18 20:00 98.4 105 18 132/59 (83) 91 01/23/18 16:30 72 01/23/18 16:15 98.4 66 18 146/65 (92) 94 01/23/18 12:06 98.1 69 18 169/78 (108) 95 (Rose Phelps) Review of Systems Gastrointestinal: DENIES: Vomiting Neurologic: COMPLAINS OF: Localized weakness, Paresthesias (Rose Phelps) Physical Exam Mr. Dalton is alert, awake and oriented to time, place and person. Speech is fluent. Cranial nerve examination: pupils equal, round and reactive to light. Extra- ocular movements are intact. Facial motor are normal and symmetrical. Sternocleidomastoid and trapezius muscles are symmetrical. Other cranial nerves are intact. Wound bandaged with primapore dressing, clean and dry. Neck is soft and supple with a good range of motion without pain. Muscle strength 4 left deltoid, 4-/5 biceps, triceps, crabber, moves right upper and bilateral lower extremities with good strength. Storm's negative bilaterally, Plantars flexors bilaterally. bilateral plantar flexion response (Rose Phelps) Medications Current Medications Current Medications Medications (Trade) Dose Ordered Sig/Mojgan Route PRN Reason Start Time Stop Time Status Last Admin Dose Admin Vancomycin HCl 1000 mg/Sodium Chloride 250 ml @ 250 mls/hr REGISTERED PUBLIC SURVEYOR IV 01/21/18 11:00 01/24/18 10:59 01/21/18 13:31 Sodium Chloride 1,000 ml @ 30 mls/hr Q24H IV 01/21/18 11:00 01/23/18 10:47 Lactated Ringer's 1,000 ml @ 0 mls/hr Q24H PRN IV SEE LABEL COMMENTS 01/21/18 11:00 01/21/18 11:00 Sodium Chloride 500 ml @ 30 mls/hr [id number] PRN IV SEE LABEL COMMENTS 01/21/18 11:00 01/24/18 10:59 Metoprolol Tartrate (Lopressor) 25 mg REGISTERED PUBLIC SURVEYOR PRN PO SEE LABEL COMMENTS 01/21/18 11:00 01/24/18 10:59 Povidone Iodine (Betadine 5% Antisepsis Kit) 1 applic REGISTERED PUBLIC SURVEYOR PRN EACH NARE SEE LABEL COMMENTS 01/21/18 11:00 01/24/18 10:59 01/21/18 11:00 Chlorhexidine Gluconate (Chlorhexidine 2% Cloth) 3 pack REGISTERED PUBLIC SURVEYOR PRN TOPICAL SEE LABEL COMMENTS 01/21/18 11:00 01/24/18 10:59 01/21/18 10:45 Pantoprazole Sodium (Protonix Inj) 40 mg DAILY IVP 01/22/18 09:00 01/24/18 08:49 Acetaminophen/ Hydrocodone Bitart ([place] 10-325 Mg) 1 tab Q4H PRN PO PAIN SCALE 1 TO 5 01/21/18 16:30 01/23/18 21:35 Acetaminophen/ Hydrocodone Bitart ([place] 10-325 Mg) 2 tab Q4H PRN PO PAIN SCALE 6 TO 10 01/21/18 16:30 01/23/18 15:19 Morphine Sulfate (Morphine Inj) 2 mg Q2H PRN IV PUSH PAIN SCALE 1 TO 6 01/21/18 16:30 01/22/18 16:37 Morphine Sulfate (Morphine Inj) 4 mg Q2H PRN IV PUSH PAIN SCALE 7 TO 10 01/21/18 16:30 Acetaminophen (Tylenol) 650 mg Q4H PRN PO TEMPERATURE > 101.5 F 01/21/18 16:30 Amlodipine Besylate (Norvasc) 5 mg DAILY PO 01/22/18 09:00 01/24/18 08:50 Baclofen (Lioresal) 20 mg TID PO 01/21/18 18:00 01/24/18 08:50 Digoxin (Lanoxin) 0.125 mg DAILY PO 01/22/18 09:00 01/24/18 08:50 Methylphenidate HCl (Ritalin Ir) 20 mg BIDAC PO 01/22/18 07:00 01/24/18 05:47 Topiramate (Topamax) 50 mg TID PO 01/21/18 18:00 01/24/18 08:50 Zolpidem Tartrate (Ambien) 10 mg HS PRN PO INSOMNIA 01/21/18 16:30 01/24/18 02:23 Hydrochlorothiazide (Microzide) 12.5 mg DAILY PO 01/22/18 09:00 01/24/18 08:50 Methylphenidate HCl (Methylin Sr) 20 mg TIDAC PO 01/21/18 17:00 01/24/18 08:50 Sotalol HCl (Betapace) 120 mg TID PO 01/21/18 18:00 01/24/18 08:50 Miscellaneous (Pill Splitter) 1 ea UNSCH PRN OTHER SEE LABEL COMMENTS 01/21/18 17:00 Losartan Potassium (Cozaar) 100 mg DAILY PO 01/22/18 09:00 01/24/18 08:50 Ondansetron HCl (Zofran Inj) 4 mg Q8H PRN IV PUSH NAUSEA 01/21/18 21:15 Dexamethasone Sodium Phosphate (Decadron Inj) 4 mg Q6HR IV PUSH 01/22/18 18:00 01/24/18 05:45 Gabapentin (Neurontin) 600 mg TID PO 01/24/18 13:00 (Rose Phelps) Medical Decision Making MDM Remarks 67 y/o male status post placement of new right frontal LATHE SET UP OPERATOR shunt due to nonfunctioning shunt Normal pressure hydrocephalus Acute left upper extremity paresis, this is improving post-op CT Brain w/o acute hemorrhage, postsurgical changes with catheter into the right ventricle MRI brain without acute infarcts, MRI of the cervical spine showed degenerative spondylosis without significant stenosis (Rose Phelps) Plan Plan Remarks cont PT, OT currently unsafe to dc home per Dr. Villanueva, discharge planning to inpatient rehab, trying for [facility] for discharge today when accepted [facility] in 10 days (Rose Phelps) Attending Statement The exam, history, and the medical decision-making described in the above note were completed with the assistance of the mid-level provider. I reviewed and agree with the findings presented. I attest that I had a [id number] encounter with the patient on the same day, and personally performed and documented my assessment and findings in the medical record. (Daniel Villanueva MD) Rose Phelps January 24, 2018 10:58 Daniel Villanueva MD January 25, 2018 13:38
[2018-01-24] MEDS: ACETAMINOPHEN/HYDROcodone 325 MG/10 MG TAB PO PRN ×2 (14:54→18:59)
[2018-01-25] VITALS (9 sets, daily range): BP systolic 147–162; BP diastolic 70–115; PULSE 46–65; RESP 16–20; TEMP 98–98.7; O2SAT 94–97
[2018-01-25] MEDS: ZOLPIDEM TARTRATE 10 MG TAB PO PRN ×2 (02:20→22:06)
[2018-01-25] MEDS: METHYLPHENIDATE HCL 10 MG TAB PO SCH ×2 (06:10→16:30)
[2018-01-25] MEDS: DEXAMETHASONE SOD PHOS 4 MG/ML VIAL IV PUSH SCH ×3 (06:10→17:47)
[2018-01-25] MEDS: METHYLPHENIDATE HCL 10 MG EXTENDED RELEASE TAB PO SCH ×3 (07:27→17:47)
[2018-01-25] MEDS: ACETAMINOPHEN/HYDROcodone 325 MG/10 MG TAB PO PRN ×4 (07:27→22:06)
[2018-01-25] MEDS: PANTOPRAZOLE SODIUM 40 MG VIAL IVP SCH (09:50)
[2018-01-25] MEDS: BACLOFEN 10 MG TAB PO SCH ×3 (09:50→17:47)
[2018-01-25] MEDS: TOPIRAMATE 25 MG TAB PO SCH ×3 (09:50→18:00)
[2018-01-25] MEDS: SOTALOL HCL 80 MG TAB PO SCH ×3 (09:51→17:47)
[2018-01-25] MEDS: amLODIPine BESYLATE 5 MG TAB PO SCH (09:51)
[2018-01-25] MEDS: GABAPENTIN 300 MG CAP PO SCH ×3 (09:51→17:47)
[2018-01-25] MEDS: DIGOXIN 0.125 MG TAB PO SCH (09:51)
[2018-01-25] MEDS: LOSARTAN 50 MG TAB PO SCH (09:51)
[2018-01-25] MEDS: HYDROCHLOROTHIAZIDE 12.5 MG CAP PO SCH (09:51)
[2018-01-25] MEDS: SODIUM CHLOR 0.9% 1000 ML INJ 1,000 ML IV SCH (11:14)
--- NOTE | 2018-01-25 13:14 | HHI.NSPN ---
(Rose Phelps) Note Status Status: Progress Note (Rose Phelps) Interval History Interval History Mr. Dalton is a 67-year-old male who underwent placement of new right frontal ventriculoperitoneal shunt for normal pressure hydrocephalus with a nonfunctioning AWNING INSTALLER shunt on 01/21/18. 01/22: Awaiting follow-up CT brain. Patient reports of acute onset of new left upper extremity weakness. 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 completed MRI Brain and Cervical spine. 01/24: AWNING INSTALLER shunt reprogrammed yesterday to 100 mm H20. Today patient feels there has been some improvement in left arm weakness, ambulated with PT this morning. He is voiding. 01/25: Reports left arm continues to improve. States he cannot afford [facility]- pay. Trying to evaluate other SNF options for rehab. Awaiting PT for stairs evaluation. (Rose Phelps) Labs, Micro, & Vital Signs Results Date Time Temp Pulse Resp B/P (MAP) Pulse Ox O2 Delivery O2 Flow Rate FiO2 01/25/18 12:58 98.3 58 20 162/72 (102) 97 01/25/18 09:26 98.0 65 16 152/71 (98) 97 01/25/18 08:07 59 01/25/18 05:14 48 01/25/18 04:00 46 01/25/18 00:00 53 01/24/18 20:00 68 01/24/18 17:31 76 01/24/18 16:00 98.6 64 18 162/77 (105) 94 Constitutional Vital Signs Date Time Temp Pulse Resp B/P (MAP) Pulse Ox O2 Delivery O2 Flow Rate FiO2 01/25/18 12:58 98.3 58 20 162/72 (102) 97 01/25/18 09:26 98.0 65 16 152/71 (98) 97 01/25/18 08:07 59 01/25/18 05:14 48 01/25/18 04:00 46 01/25/18 00:00 53 01/24/18 20:00 68 01/24/18 17:31 76 01/24/18 16:00 98.6 64 18 162/77 (105) 94 (Rose Phelps) Review of Systems Neurologic: COMPLAINS OF: Localized weakness (Rose Phelps) Physical Exam Mr. Dalton is alert, awake and oriented to time, place and person. Speech is fluent. Cranial nerve examination: pupils equal, round and reactive to light. Extra- ocular movements are intact. Facial motor are normal and symmetrical. Sternocleidomastoid and trapezius muscles are symmetrical. Other cranial nerves are intact. Wound bandaged with primapore dressing, clean and dry. Neck is soft and supple with a good range of motion without pain. Muscle strength 4 left deltoid, biceps, triceps, vp respiratory, moves right upper and bilateral lower extremities with good strength. Storm's negative bilaterally, Plantars flexors bilaterally. bilateral plantar flexion response (Rose Phelps) Medications Current Medications Current Medications Medications (Trade) Dose Ordered Sig/Mojgan Route PRN Reason Start Time Stop Time Status Last Admin Dose Admin Sodium Chloride 1,000 ml @ 30 mls/hr Q24H IV 01/21/18 11:00 01/23/18 10:47 Lactated Ringer's 1,000 ml @ 0 mls/hr Q24H PRN IV SEE LABEL COMMENTS 01/21/18 11:00 01/21/18 11:00 Pantoprazole Sodium (Protonix Inj) 40 mg DAILY IVP 01/22/18 09:00 01/25/18 09:50 Acetaminophen/ Hydrocodone Bitart ([place] 10-325 Mg) 1 tab Q4H PRN PO PAIN SCALE 1 TO 5 01/21/18 16:30 01/25/18 11:54 Acetaminophen/ Hydrocodone Bitart ([place] 10-325 Mg) 2 tab Q4H PRN PO PAIN SCALE 6 TO 10 01/21/18 16:30 01/25/18 07:27 Morphine Sulfate (Morphine Inj) 2 mg Q2H PRN IV PUSH PAIN SCALE 1 TO 6 01/21/18 16:30 01/22/18 16:37 Morphine Sulfate (Morphine Inj) 4 mg Q2H PRN IV PUSH PAIN SCALE 7 TO 10 01/21/18 16:30 Acetaminophen (Tylenol) 650 mg Q4H PRN PO TEMPERATURE > 101.5 F 01/21/18 16:30 Amlodipine Besylate (Norvasc) 5 mg DAILY PO 01/22/18 09:00 01/25/18 09:51 Baclofen (Lioresal) 20 mg TID PO 01/21/18 18:00 01/25/18 09:50 Digoxin (Lanoxin) 0.125 mg DAILY PO 01/22/18 09:00 01/25/18 09:51 Methylphenidate HCl (Ritalin Ir) 20 mg BIDAC PO 01/22/18 07:00 01/25/18 06:10 Topiramate (Topamax) 50 mg TID PO 01/21/18 18:00 01/25/18 09:50 Zolpidem Tartrate (Ambien) 10 mg HS PRN PO INSOMNIA 01/21/18 16:30 01/25/18 02:20 Hydrochlorothiazide (Microzide) 12.5 mg DAILY PO 01/22/18 09:00 01/25/18 09:51 Methylphenidate HCl (Methylin Sr) 20 mg TIDAC PO 01/21/18 17:00 01/25/18 11:53 Sotalol HCl (Betapace) 120 mg TID PO 01/21/18 18:00 01/25/18 09:51 Miscellaneous (Pill Splitter) 1 ea UNSCH PRN OTHER SEE LABEL COMMENTS 01/21/18 17:00 Losartan Potassium (Cozaar) 100 mg DAILY PO 01/22/18 09:00 01/25/18 09:51 Ondansetron HCl (Zofran Inj) 4 mg Q8H PRN IV PUSH NAUSEA 01/21/18 21:15 Dexamethasone Sodium Phosphate (Decadron Inj) 4 mg Q6HR IV PUSH 01/22/18 18:00 01/25/18 11:53 Gabapentin (Neurontin) 600 mg TID PO 01/24/18 13:00 01/25/18 09:51 (Rose Phelps) Medical Decision Making MDM Remarks 67 y/o male status post placement of new right frontal AWNING INSTALLER shunt due to nonfunctioning shunt Normal pressure hydrocephalus Acute left upper extremity paresis, this is improving post-op CT Brain w/o acute hemorrhage, postsurgical changes with catheter into the right ventricle MRI brain without acute infarcts, MRI of the cervical spine showed degenerative spondylosis without significant stenosis (Rose Phelps) Plan Plan Remarks cont PT, OT Recommend patient discharged to [facility], We will follow-up PT evaluation with stairs Case management for discharge planning (Rose Phelps) Attending Statement I recommend he goes to rehab. In my opinion he is noit safe to go home He understands All his questions have been answered The exam, history, and the medical decision-making described in the above note were completed with the assistance of the mid-level provider. I reviewed and agree with the findings presented. I attest that I had a [id number] encounter with the patient on the same day, and personally performed and documented my assessment and findings in the medical record. (Daniel Villanueva MD) Rose Phelps January 25, 2018 13:14 Daniel Villanueva MD January 26, 2018 11:56
[2018-01-26] VITALS (7 sets, daily range): BP systolic 142–174; BP diastolic 65–88; PULSE 54–68; RESP 18–19; TEMP 97.2–98.6; O2SAT 95–98
[2018-01-26] MEDS: DEXAMETHASONE SOD PHOS 4 MG/ML VIAL IV PUSH SCH ×5 (00:46→23:22)
[2018-01-26] MEDS: METHYLPHENIDATE HCL 10 MG TAB PO SCH ×2 (06:10→17:29)
--- NOTE | 2018-01-26 10:48 | HHI.DCPOC ---
Discharge Care Plan Diagnosis: (1) S/P ventriculoperitoneal shunt Goals to Promote Your Health * To prevent worsening of your condition and complications * To maintain your health at the optimal level Directions to Meet Your Goals Take your medications as prescribed Follow your dietary instruction Follow activity as directed Keep your appointments as scheduled Take your immunizations and boosters as scheduled If your symptoms worsen call your PCP, if no PCP go to Urgent Care Center or Emergency Room Smoking is Dangerous to Your Health. Avoid second hand smoke Call the 24-hour hour crisis hotline for domestic abuse at Rose Phelps January 26, 2018 10:48
--- NOTE | 2018-01-26 10:48 | HHI.DS ---
Discharge Summary Admission Date January 21, 2018 at 16:27 Discharge Date: January 27, 2018 Admitting Diagnosis s/p SIGNAL TECHNICIAN shunt (1) S/P ventriculoperitoneal shunt ICD Code: Z98.2 - Presence of cerebrospinal fluid drainage device Brief History Mr Dalton is a 67 year old male with history of hydrocephalus and a priorly placed SIGNAL TECHNICIAN shunt who presented with progressive gait imbalance and short term memory loss, and classic symptoms of shunt malfunrction. His condition was getting progressively worse. He underwent evaluation with a shuntogram which demonstrated occlusion of his shunt. A ventriculoperitoneal shunt was indicated Imaging Last Impressions Cervical Spine MRI 01/23/18909 Signed Impressions: Service Date/Time: January 10:00 - CONCLUSION: 1. At C4-5, and C6-7 and C7-T1 there are small posterior disc protrusions and osteophytic ridging resulting in mild AP canal stenosis and flattening of the anterior surface of the cord. 2. Previous fusion at C5-6 without stenosis. 3. Normal alignment of the cervical spine. No cord signal abnormality. Zen Goldsmith MD Brain MRI 01/23/18 0910 Signed Impressions: Service Date/Time: January 10:00 - CONCLUSION: 1. Multiple shunts as above. There is some linear signal abnormality also extending into the right basal ganglia probably from previous shunt attempt. No mass effect or shift. No hydrocephalus. 2 focal areas of presumed encephalomalacia in the body and posterior aspect of the corpus callosum. Zen Goldsmith MD Head CT 01/22/18 0000 Signed Impressions: Service Date/Time: Monday, January 22, 2018 10:32 - CONCLUSION: Satisfactory appearance post ventriculostomy Jhony Linn MD Chest X-Ray 01/21/18 1016 Signed Impressions: Service Date/Time: Sunday, January 21, 2018 10:25 - CONCLUSION: No acute cardiopulmonary process. Chip Sifuentes MD Hospital Course Mr. Soto underwent placement of new right frontal SIGNAL TECHNICIAN shunt due to nonfunctioning shunt. Following surgery he developed acute left upper extremity paresis. A post-op CT Brain w/o , postsurgical changes with catheter into the right ventricle without acute hemorrhage. He also underwent an MRI brain without which showed no acute infarcts, and MRI of the cervical spine showed degenerative spondylosis without significant stenosis. His left arm weakness was improving. He was discharged to SNF in stable conditions. Pt Condition on Discharge: Stable Discharge Disposition: Discharge to SNF Discharge Instructions DIET: Follow Instructions for: Heart Healthy Diet ACTIVITIES You can perform: Weight Bearing As Jolynn ADDITIONAL Activity Instructio: Avoid strenuous activities, head trauma, and falls. Use infertility medical assistant and or assistive devices as needed when ambulating. New Medications: Hydrocodone-Acetaminophen (Hydrocodone-Acetaminophen) 5-325 mg Tab 1 TAB PO Q8HR PRN for PAIN, #30 TAB 0 Refills Continued Medications: Amlodipine (Amlodipine) 5 Mg Tab 5 MG PO DAILY, #180 Baclofen (Baclofen) 10 Mg Tab 20 MG PO TID, #90 Dabigatran (Pradaxa) 150 Mg Cap 150 MG PO BID for Blood Clot Prevention, #60 CAP 0 Refills Digoxin (Digoxin) 0.125 Mg Tab 0.125 MG PO DAILY for Regulate Heart Beat, #30 TAB 0 Refills Gabapentin (Gabapentin) 300 Mg Cap 600 MG PO BID, #540 Hydrocodone-Acetaminophen (Hydrocodone-Acetaminophen) 10-325 mg Tab 2 TAB PO Q4H PRN for PAIN, TAB 0 Refills Losartan-Hydrochlorothiazide (Losartan-Hydrochlorothiazide) 100-12.5 Mg Tab 1 TAB PO DAILY for Blood Pressure Management, #30 TAB 0 Refills Methylphenidate ER 8 HR (Methylphenidate ER 8 HR) 20 Mg Tab 20 MG PO TIDAC for Attention Deficit Disorder, #30 TAB 0 Refills (This prescription has been renewed) Methylphenidate IR (Methylphenidate IR) 20 Mg Tab 20 MG PO BIDAC, #60 TAB 0 Refills Sotalol (Sotalol) 120 Mg Tab 120 MG PO TID, #261 Topiramate (Topiramate) 50 Mg Tab 50 MG PO TID for Control Seizures, #60 TAB 0 Refills Zolpidem (Ambien) 10 Mg Tab 10 MG PO HS PRN for INSOMNIA, TAB 0 Refills Rose Phelps January 26, 2018 10:48
[2018-01-26] MEDS: SODIUM CHLOR 0.9% 1000 ML INJ 1,000 ML IV SCH (11:00)
[2018-01-26] MEDS: METHYLPHENIDATE HCL 10 MG EXTENDED RELEASE TAB PO SCH ×2 (13:22→21:36)
[2018-01-26] MEDS: LOSARTAN 50 MG TAB PO SCH (13:23)
[2018-01-26] MEDS: TOPIRAMATE 25 MG TAB PO SCH ×2 (13:23→21:38)
[2018-01-26] MEDS: HYDROCHLOROTHIAZIDE 12.5 MG CAP PO SCH (13:23)
[2018-01-26] MEDS: BACLOFEN 10 MG TAB PO SCH ×2 (13:23→21:39)
[2018-01-26] MEDS: amLODIPine BESYLATE 5 MG TAB PO SCH (13:23)
[2018-01-26] MEDS: GABAPENTIN 300 MG CAP PO SCH ×2 (13:24→21:37)
[2018-01-26] MEDS: DIGOXIN 0.125 MG TAB PO SCH (13:24)
[2018-01-26] MEDS: SOTALOL HCL 80 MG TAB PO SCH ×2 (13:25→21:41)
[2018-01-26] MEDS: PANTOPRAZOLE SODIUM 40 MG VIAL IVP SCH (13:26)
[2018-01-26] MEDS: ACETAMINOPHEN/HYDROcodone 325 MG/10 MG TAB PO PRN ×2 (13:26→21:42)
[2018-01-26] MEDS: ZOLPIDEM TARTRATE 10 MG TAB PO PRN (21:41)
[2018-01-27] MEDS: SOTALOL HCL 80 MG TAB PO SCH ×2 (05:00→13:16)
[2018-01-27 05:46] VITALS: BP 148/72; PULSE 50; RESP 18; TEMP 97.1; O2SAT 98
[2018-01-27] MEDS: TOPIRAMATE 25 MG TAB PO SCH ×2 (05:48→13:18)
[2018-01-27] MEDS: GABAPENTIN 300 MG CAP PO SCH ×2 (05:49→13:15)
[2018-01-27] MEDS: METHYLPHENIDATE HCL 10 MG TAB PO SCH (05:50)
[2018-01-27] MEDS: METHYLPHENIDATE HCL 10 MG EXTENDED RELEASE TAB PO SCH ×2 (05:50→13:17)
[2018-01-27] MEDS: BACLOFEN 10 MG TAB PO SCH ×2 (05:51→13:17)
[2018-01-27] MEDS: DEXAMETHASONE SOD PHOS 4 MG/ML VIAL IV PUSH SCH ×2 (05:52→10:59)
[2018-01-27 08:00] VITALS: BP 145/73; PULSE 54; RESP 18; TEMP 98.3; O2SAT 98
[2018-01-27] MEDS: DIGOXIN 0.125 MG TAB PO SCH (09:00)
[2018-01-27] MEDS: PANTOPRAZOLE SODIUM 40 MG VIAL IVP SCH (09:00)
[2018-01-27] MEDS: LOSARTAN 50 MG TAB PO SCH (09:00)
[2018-01-27] MEDS: HYDROCHLOROTHIAZIDE 12.5 MG CAP PO SCH (09:00)
[2018-01-27] MEDS: amLODIPine BESYLATE 5 MG TAB PO SCH (09:00)
[2018-01-27] MEDS: SODIUM CHLOR 0.9% 1000 ML INJ 1,000 ML IV SCH (10:53)
[2018-01-27] MEDS: ACETAMINOPHEN/HYDROcodone 325 MG/10 MG TAB PO PRN (10:57)
--- NOTE | 2018-01-27 11:08 | HHI.FF ---
Face to Face Verification Diagnosis: (1) Normal pressure hydrocephalus (2) S/P ventriculoperitoneal shunt Physical Therapy Order: Improve ambulation, Strength and gait training Occupational Therapy Order: Evaluate and Treat, Improve ADL, Gross motor coordination, Fine motor coordination Home Health Nursing Order: Medical education Signs/symptoms of disease process Medication education-adverse effect Wound care and dressing changes Nursing assessment with vital signs I have seen patient Johnathon DaltonJr on 01/27/18. My clinical findings support the need for the requested home health care services because: Deconditioned w/ increased weakness High risk of falls I certify that my clinical findings support that this patient is homebound because: Post-op weakness Impaired cognitive ability/safety Unsteady gait/balance Rose Phelps January 27, 2018 11:08
--- NOTE | 2018-01-27 12:00 | HHI.NSPN ---
(Rose Phelps) Note Status Status: Progress Note (Rose Phelps) Interval History Interval History THIS NOTE IS FOR 01/26/18 WHEN PATIENT WAS SEEN AND EXAMINED Mr. Dalton is a 67-year-old male who underwent placement of new right frontal ventriculoperitoneal shunt for normal pressure hydrocephalus with a nonfunctioning PATTERN CLEANER shunt on 01/21/18. 01/22: Awaiting follow-up CT brain. Patient reports of acute onset of new left upper extremity weakness. 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 completed MRI Brain and Cervical spine. 01/24: PATTERN CLEANER shunt reprogrammed yesterday to 100 mm H20. Today patient feels there has been some improvement in left arm weakness, ambulated with PT this morning. He is voiding. 01/25: Reports left arm continues to improve. States he cannot afford [facility]- pay. Trying to evaluate other SNF options for rehab. Awaiting PT for stairs evaluation. 01/26: overall reports to be doing ok, agreeable to be discharge to a SNF today. (Rose Phelps) Labs, Micro, & Vital Signs Results Date Time Temp Pulse Resp B/P (MAP) Pulse Ox O2 Delivery O2 Flow Rate FiO2 01/27/18 08:00 98.3 54 18 145/73 (97) 98 01/27/18 05:46 97.1 50 18 148/72 (97) 98 01/26/18 19:35 97.2 66 18 163/72 (102) 97 01/26/18 16:00 98.6 56 18 144/65 (91) 97 01/26/18 13:14 55 19 162/81 (108) 96 Constitutional Vital Signs Date Time Temp Pulse Resp B/P (MAP) Pulse Ox O2 Delivery O2 Flow Rate FiO2 01/27/18 08:00 98.3 54 18 145/73 (97) 98 01/27/18 05:46 97.1 50 18 148/72 (97) 98 01/26/18 19:35 97.2 66 18 163/72 (102) 97 01/26/18 16:00 98.6 56 18 144/65 (91) 97 01/26/18 13:14 55 19 162/81 (108) 96 (Rose Phelps) Physical Exam THIS NOTE IS FOR 01/26/18 WHEN PATIENT WAS SEEN AND EXAMINED Mr. Dalton is alert, awake and oriented to time, place and person. Speech is fluent. Cranial nerve examination: pupils equal, round and reactive to light. Extra- ocular movements are intact. Facial motor are normal and symmetrical. Sternocleidomastoid and trapezius muscles are symmetrical. Other cranial nerves are intact. Wound bandaged with primapore dressing, clean and dry. Neck is soft and supple with a good range of motion without pain. 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 Storm's negative bilaterally, Plantars flexors bilaterally. bilateral plantar flexion response (Rose Phelps) Medications Current Medications Current Medications Medications (Trade) Dose Ordered Sig/Mojgan Route PRN Reason Start Time Stop Time Status Last Admin Dose Admin Sodium Chloride 1,000 ml @ 30 mls/hr Q24H IV 01/21/18 11:00 01/23/18 10:47 Lactated Ringer's 1,000 ml @ 0 mls/hr Q24H PRN IV SEE LABEL COMMENTS 01/21/18 11:00 01/21/18 11:00 Pantoprazole Sodium (Protonix Inj) 40 mg DAILY IVP 01/22/18 09:00 01/27/18 09:00 Acetaminophen/ Hydrocodone Bitart ([place] 10-325 Mg) 1 tab Q4H PRN PO PAIN SCALE 1 TO 5 01/21/18 16:30 01/26/18 13:26 Acetaminophen/ Hydrocodone Bitart ([place] 10-325 Mg) 2 tab Q4H PRN PO PAIN SCALE 6 TO 10 01/21/18 16:30 01/27/18 10:57 Morphine Sulfate (Morphine Inj) 2 mg Q2H PRN IV PUSH PAIN SCALE 1 TO 6 01/21/18 16:30 01/22/18 16:37 Morphine Sulfate (Morphine Inj) 4 mg Q2H PRN IV PUSH PAIN SCALE 7 TO 10 01/21/18 16:30 Acetaminophen (Tylenol) 650 mg Q4H PRN PO TEMPERATURE > 101.5 F 01/21/18 16:30 Amlodipine Besylate (Norvasc) 5 mg DAILY PO 01/22/18 09:00 01/27/18 09:00 Digoxin (Lanoxin) 0.125 mg DAILY PO 01/22/18 09:00 01/27/18 09:00 Methylphenidate HCl (Ritalin Ir) 20 mg BIDAC PO 01/22/18 07:00 01/27/18 05:50 Zolpidem Tartrate (Ambien) 10 mg HS PRN PO INSOMNIA 01/21/18 16:30 01/26/18 21:41 Hydrochlorothiazide (Microzide) 12.5 mg DAILY PO 01/22/18 09:00 01/27/18 09:00 Miscellaneous (Pill Splitter) 1 ea UNSCH PRN OTHER SEE LABEL COMMENTS 01/21/18 17:00 Losartan Potassium (Cozaar) 100 mg DAILY PO 01/22/18 09:00 01/27/18 09:00 Ondansetron HCl (Zofran Inj) 4 mg Q8H PRN IV PUSH NAUSEA 01/21/18 21:15 Dexamethasone Sodium Phosphate (Decadron Inj) 4 mg Q6HR IV PUSH 01/22/18 18:00 01/27/18 10:59 Sotalol HCl (Betapace) 120 mg Q8H PO 01/26/18 21:00 01/26/18 21:41 Baclofen (Lioresal) 20 mg Q8H PO 01/26/18 21:00 01/27/18 05:51 Gabapentin (Neurontin) 600 mg Q8H PO 01/26/18 21:00 01/27/18 05:49 Topiramate (Topamax) 50 mg Q8H PO 01/26/18 21:00 01/27/18 05:48 Methylphenidate HCl (Methylin Sr) 20 mg Q8H PO 01/26/18 21:00 01/27/18 05:50 (Rose Phelps) Medical Decision Making MDM Remarks THIS NOTE IS FOR 01/26/18 WHEN PATIENT WAS SEEN AND EXAMINED 67 y/o male status post placement of new right frontal PATTERN CLEANER shunt due to nonfunctioning shunt Normal pressure hydrocephalus Acute left upper extremity paresis, this is improving post-op CT Brain w/o acute hemorrhage, postsurgical changes with catheter into the right ventricle MRI brain without acute infarcts, MRI of the cervical spine showed degenerative spondylosis without significant stenosis (Rose Phelps) Plan Plan Remarks THIS NOTE IS FOR 01/26/18 WHEN PATIENT WAS SEEN AND EXAMINED cont PT, OT dc to SNF today Case management for discharge planning (Rose Phelps) Attending Statement The exam, history, and the medical decision-making described in the above note were completed with the assistance of the mid-level provider. I reviewed and agree with the findings presented. I attest that I had a [id number] encounter with the patient on the same day, and personally performed and documented my assessment and findings in the medical record. (Daniel Villanueva MD) Rose Phelps January 27, 2018 12:00 Daniel Villanueva MD January 28, 2018 16:19
[2018-01-27] MEDS ORDERED: METH20TA3 PO (12:55)
[2018-01-27 13:07] VITALS: BP 138/75; PULSE 61; RESP 19; TEMP 98.4; O2SAT 98
[2018-01-27 14:26] VITALS: PULSE 62
== END 2018-01-27 17:10 | DRG 32 ==
LOC: HSDC 09:42 → EDSTATUS 11:30 → HSDI 16:27 → N05B 18:45
PROVIDERS: ADMIT Neurological Surgery; ATTEND Neurological Surgery
PROC: 00160J6 Bypass Cerebral Ventricle to Peritoneal Cavity with Synthetic Substitute, Open Approach (ICD-10-PCS; principal; 2018-01-21 13:34)
DX: T85.01XA Breakdown (mechanical) of ventricular intracranial (communicating) shunt, initial encounter (principal); G91.2 (Idiopathic) normal pressure hydrocephalus; G62.9 Polyneuropathy, unspecified; I48.91 Unspecified atrial fibrillation; J45.909 Unspecified asthma, uncomplicated; I10 Essential (primary) hypertension; M47.892 Other spondylosis, cervical region; K21.9 Gastro-esophageal reflux disease without esophagitis; M19.90 Unspecified osteoarthritis, unspecified site; Z87.442 Personal history of urinary calculi; Y75.2 Prosthetic and other implants, materials and neurological devices associated with adverse incidents
CPT/HCPCS: 70450; 70551; 71045; 72141; 80053; 81001; 82945; 84157; 85025; 85610; 85730; 87070; 87205; 87641; 89051; 93005; 94150; C9113; J0330; J1100; J1580; J2270; J2370; J2405; J2710; J3370; J3480; J7030; J7050; J7120; J8501

== ENCOUNTER 2018-02-10 00:49 | Emergency (ER) | payer MEDICARE ==
[~2018-02-10] VITALS: Ht 190.5 cm; Wt 111.0 kg
[~2018-02-10 00:49] MED LIST changes: +AMBI10TA PO; -BUSP1TAB; -COZA100T PO; +HYDR-3516 PO; +HYDR-3583 PO; +LOSA100T3 PO; +METH20TA PO; +METH20TA3 PO; +TOPI50TA7 PO
[2018-02-10] MEDS ORDERED: IOHEXOL 350 MG/ML 10 ML VIAL (for RAD DIAG) IVCONTRAST ONE (00:50)
[2018-02-10 01:13] VITALS: BP 148/73; PULSE 62; RESP 20; TEMP 98.3; O2SAT 98
--- NOTE | 2018-02-10 02:21 | PD ---
HPI Chief Complaint: Abdominal Pain Time Seen by Provider: 01:30 Travel History International Travel<30 days: No Contact w/Intl Traveler<30days: No Traveled to known affect area: No History of Present Illness HPI The patient is a 67 year old male who presents to the [facility] emergency department with a history of abdominal distention that he reports began after eating sandwich for lunch earlier today. The patient reports that he called his neurosurgeon as he recently had a new WOOD PATTERN MAKER shunt placed on January 21, 2018. He was concerned that he may be having a complication related to the shunt placement, he spoke to the neurosurgeon on-call, Dr. Peter and was told to come the emergency department for additional evaluation. The patient's shunt was originally placed by Dr. Villanueva due to the prior shunt being clogged. This is the third shunt that the patient has had placed related to normal pressure hydrocephalus. He reports that the distention has gradually improved since the onset, however he has not eaten again because he is concerned that it may recur. He reports having a pressure in his abdomen, however he denies having pain. He denies having any nausea or vomiting. He denies having any diarrhea. He reports that he has been moving his bowels regularly. He last moved his bowels yesterday. He denies having any known fevers or chills. He denies having any urinary symptoms. Otherwise on review of systems, he denies having any cough, congestion, neck pain, chest pain, shortness of breath, or new neurologic symptoms. The patient reports that with the last WOOD PATTERN MAKER shunt replacement he awoke with difficulty walking, headaches, confusion, incontinence. He reports that he went to rehabilitation afterwards and has had improvement in some of the symptoms. The patient reports that he was discharged from rehab 2 days ago. [facility] Past Medical History Narrative Medical The patient's past medical history is significant for atrial fibrillation chronically anticoagulated on Pradaxa, history of normal pressure hydrocephalus , history of hypertension, cerebrovascular accident, history of neuropathy Arthritis: Yes Asthma: Yes Heart Rhythm Problems: Yes (ATR. FIB) Cancer: No Cardiovascular Problems: Yes (A FIB) Cerebrovascular Accident: Yes Endocrine: No Gastrointestinal Disorders: Yes GERD: Yes Genitourinary: No Hypertension: Yes (DUE TO IVIG INFUSIONS) Immune Disorder: Yes (UNKNOWN NAME--ATTACKING OWN MUSCLES) Implanted Vascular Access Dvce: Yes Musculoskeletal: Yes (C5-C6 FUSION) Neurologic: Yes (HYDROCEPHALUS, MOTOR NEURON NEUROPATHY) Psychiatric: No Reproductive: No Respiratory: Yes Immunizations Current: Yes Tetanus Vaccination: < 5 Years Influenza Vaccination: Yes Past Surgical History Narrative Surgical The patient's past surgical history is significant for bilateral inguinal hernia repair, cystoscopy with stone retrieval, WOOD PATTERN MAKER shunt placement, cervical spine fusion, right foot fusion Abdominal Surgery: Yes (SHANNON. ING. HERNIA REP.) Body Medical Devices: WOOD PATTERN MAKER SHUNT, HARDWARE CERVICAL & RIGHT FOOT Genitourinary Surgery: Yes (CYSTO, STONE RETRIEVAL) Neurologic Surgery: Yes (WOOD PATTERN MAKER SHUNT, CERVICAL FUSION) Pacemaker: No Other Surgery: Yes Social History Alcohol Use: Yes (COUPLE MARTINI'S DAILY) Tobacco Use: No Substance Use: No Allergies-Medications (Allergen,Severity, Reaction): Coded Allergies: penicillin G (Verified Allergy, Severe, ANAPHYLACTIC, 02/10/18) Sulfa (Sulfonamide Antibiotics) (Verified Allergy, Mild, 02/10/18) Reported Meds & Prescriptions Reported Meds & Active Scripts Active Methylphenidate ER 8 HR (Methylphenidate HCl) 20 Mg Tab 20 Mg PO TIDAC Hydrocodone-Acetaminophen 5-325 mg Tab 1 Tab PO Q8HR PRN Reported Ambien (Zolpidem Tartrate) 10 Mg Tab 10 Mg PO HS PRN Topiramate 50 Mg Tab 50 Mg PO TID Pradaxa (Dabigatran) 150 Mg Cap 150 Mg PO BID Methylphenidate IR (Methylphenidate HCl) 20 Mg Tab 20 Mg PO BIDAC Losartan-Hydrochlorothiazide 100-12.5 Mg Tab 1 Tab PO DAILY Hydrocodone-Acetaminophen 10-325 mg Tab 2 Tab PO Q4H PRN Digoxin 0.125 Mg Tab 0.125 Mg PO DAILY Sotalol (Sotalol HCl) 120 Mg Tab 120 Mg PO TID Baclofen 10 Mg Tab 20 Mg PO TID Amlodipine (Amlodipine Besylate) 5 Mg Tab 5 Mg PO DAILY Gabapentin 300 Mg Cap 600 Mg PO BID Review of Systems Except as stated in HPI: all other systems reviewed are Neg General / Constitutional: No: Fever Eyes: No: Visual changes HENT: Positive: Headaches, No: Rhinorrhea, Congestion, Neck Stiffness, Neck Pain Cardiovascular: No: Chest Pain or Discomfort Respiratory: No: Shortness of Breath Gastrointestinal: Positive: Abdominal Pain (Abdominal pressure, distention), No : Nausea, Vomiting, Diarrhea, Hematochezia, Constipation, Changes in Bowel Habits, Indigestion, Loss of Appetite Genitourinary: No: Dysuria Musculoskeletal: No: Pain Skin: No Rash Neurologic: No: Weakness, Focal Abnormalities, Change in Mentation, Slurred Speech, Sensory Disturbance Psychiatric: No: Depression Endocrine: No: Polydipsia Hematologic/Lymphatic: No: Easy Bruising Physical Exam Narrative General: The patient is a well-developed well-nourished male in no acute distress. Head and Neck exam: Head is normocephalic, healing postoperative scarring along the right side of the head with a palpable WOOD PATTERN MAKER shunt. No overlying erythema, Eyes: EOMI, pupils are equal round and reactive to light. Nose: Midline septum with pink mucous membranes Mouth: Dentition unremarkable. Moist mucus membranes. Posterior oropharynx is not erythematous. No tonsillar hypertrophy. Uvula midline. Airway patent. Neck: No palpable lymphadenopathy. No nuchal rigidity. No thyromegaly. Cardiovascular: Regular rate and rhythm without murmurs, gallops, or rubs. Lungs: Clear to auscultation bilaterally. No wheezes, rhonchi, or rales. Abdomen: Soft, without tenderness to palpation in all 4 quadrants of the abdomen. No guarding, rebound, or rigidity. Normal bowel sounds are audible. No tenderness on palpation of McBurney's point. Negative Kenny sign. Along the upper aspect of the abdomen in the midepigastric area the patient has a postoperative wound that is healing well. No signs of infection. Extremities: No clubbing, cyanosis, or edema. 2+ pulses in all 4 extremities. No calf tenderness on palpation. Back: No costovertebral angle tenderness to palpation. Neurologic Exam: Grossly nonfocal. Skin Exam: No rash noted. Intact skin that is warm and dry. Data Data Last Documented VS Vital Signs Date Time Temp Pulse Resp B/P (MAP) Pulse Ox O2 Delivery O2 Flow Rate FiO2 02/10/18 01:13 98.3 62 20 148/73 (98) 98 Room Air Orders Orders Complete Blood Count With Diff (02/10/18 01:47) Comprehensive Metabolic Panel (02/10/18 01:47) Troponin I (02/10/18 01:47) Prothrombin Time / Inr (Pt) (02/10/18 01:47) Act Partial Throm Time (Ptt) (02/10/18 01:47) Lipase (02/10/18 01:47) Urinalysis - C+S If Indicated (02/10/18 01:47) Magnesium (Mg) (02/10/18 01:47) Iv Access Insert/Monitor (02/10/18 01:47) Ecg Monitoring (02/10/18 01:47) Oximetry (02/10/18 01:47) Ct Abd/Pel W Iv Contrast(Rout) (02/10/18 04:28) Iohexol 350 Inj (Omnipaque 350 Inj) (02/10/18 00:50) Labs Laboratory Tests Test 02/10/18 02:25 White Blood Count 6.3 TH/MM3 Red Blood Count 5.69 MIL/MM3 Hemoglobin 16.2 GM/DL Hematocrit 47.5 % Mean Corpuscular Volume 83.6 FL Mean Corpuscular Hemoglobin 28.5 PG Mean Corpuscular Hemoglobin Concent 34.1 % Red Cell Distribution Width 15.7 % Platelet Count 127 TH/MM3 Mean Platelet Volume 7.2 FL Neutrophils (%) (Auto) 74.7 % Lymphocytes (%) (Auto) 11.5 % Monocytes (%) (Auto) 7.2 % Eosinophils (%) (Auto) 3.8 % Basophils (%) (Auto) 2.8 % Neutrophils # (Auto) 4.7 TH/MM3 Lymphocytes # (Auto) 0.7 TH/MM3 Monocytes # (Auto) 0.5 TH/MM3 Eosinophils # (Auto) 0.2 TH/MM3 Basophils # (Auto) 0.2 TH/MM3 CBC Comment DIFF FINAL Differential Comment Prothrombin Time 10.9 SEC Prothromb Time International Ratio 1.1 RATIO Activated Partial Thromboplast Time 39.2 SEC Blood Urea Nitrogen 21 MG/DL Creatinine 1.30 MG/DL Random Glucose 95 MG/DL Total Protein 6.8 GM/DL Albumin 3.5 GM/DL Calcium Level 8.3 MG/DL Magnesium Level 2.0 MG/DL Alkaline Phosphatase 63 U/L Aspartate Amino Transf (AST/SGOT) 14 U/L Alanine Aminotransferase (ALT/SGPT) 31 U/L Total Bilirubin 0.6 MG/DL Sodium Level 141 MEQ/L Potassium Level 4.2 MEQ/L Chloride Level 107 MEQ/L Carbon Dioxide Level 28.3 MEQ/L Anion Gap 6 MEQ/L Estimat Glomerular Filtration Rate 55 ML/MIN Troponin I 0.02 NG/ML Lipase 134 U/L MDM Medical Decision Making Medical Screen Exam Complete: Yes Emergency Medical Condition: Yes Medical Record Reviewed: Yes Differential Diagnosis Postoperative infection, versus bowel obstruction, versus constipation Narrative Course During the course of the patient's emergency department visit, the patient's history, examination, and differential diagnosis were reviewed with the patient. The patient was placed on a threat monitoring analyst with oximetry and frequent blood pressure monitoring. The patient had IV access obtained and blood work sent for analysis. The patient's laboratory studies were reviewed and remarkable for a white count of 6.3, hemoglobin 16.2, platelets 127, neutrophils 74.7, CMP is remarkable for a BUN of 21, GFR 55, calcium 8.3, AST 14, lipase 134, PT 10.9, PTT 39.2. Radiology studies were reviewed and remarkable for Last Impressions Abdomen/Pelvis CT 02/10/18 [id number] Signed Impressions: CONCLUSION: Essentially unremarkable study except for stool. There are no signs of infection to suggest any complication related to the patient's WOOD PATTERN MAKER shunt. The patient's abdominal distention could be related to some degree of constipation. The patient is given a prescription for MiraLAX at discharge. He is encouraged to follow up with his neurosurgeon and his primary care physician in the next few days. The patient is resting comfortably and feels better, is alert and in no distress. The patient's results and examination findings were discussed with the patient. The repeat examination is unremarkable and benign. The history, exam, diagnostic testing, and current condition do not suggest any significant pathology to warrant further testing, continued ED treatment, admission, or surgical evaluation at this point. The vital signs have been stable. The patient does not have uncontrollable pain, intractable vomiting, or other significant symptoms. The patient's condition is stable and appropriate for discharge. The patient will pursue further outpatient evaluation with a primary care physician or other designated or consulting physician as indicated in the discharge instructions. The patient is instructed to report back to the emergency department immediately for reexamination in the mean time if he/ she develops any new or worsening signs or symptoms. The patient expressed understanding and was agreeable with this plan. Diagnosis Primary Impression: Constipation Qualified Codes: K59.00 - Constipation, unspecified Referrals: Neurosurgeon 3 days Primary Care Physician 2 days Patient Instructions: Constipation (ED), General Instructions Med/Other Pt SpecificInfo: Prescription(s) given Scripts Polyethylene Glycol 3350 Powder (Miralax Powder) 17 Gm Powd 17 GM PO DAILY for Constipation, #1 CAN 0 Refills Mix and dissolve one measuring cap-ful (17 grams) in water or juice. Prov: Emily Redman MD 02/10/18 Disposition: 01 DISCHARGE HOME Condition: Stable Emily Redman MD February 10, 2018 02:21
[2018-02-10 03:01] LABS: AUTOMATED NEUTROPHIL # 4.7 TH/MM3 (1.8-7.7); BASOPHIL # 0.2 TH/MM3 (0-0.2); BASOPHIL % 2.8 % (0.0-2.0); EOSINOPHIL # 0.2 TH/MM3 (0-0.4); EOSINOPHIL % 3.8 % (0.0-4.0); HEMATOCRIT 47.5 % (39.0-51.0); HEMOGLOBIN 16.2 GM/DL (13.0-17.0); LYMPH % 11.5 % (9.0-44.0); LYMPHOCYTE # 0.7 TH/MM3 (1.0-4.8); MEAN CELL VOLUME 83.6 FL (80.0-100.0); MEAN CORPUSCULAR HEMOGLOBIN 28.5 PG (27.0-34.0); MEAN CORPUSCULAR HGB CONC 34.1 % (32.0-36.0); MEAN PLATELET VOLUME 7.2 FL (7.0-11.0); MONO % 7.2 % (0.0-8.0); MONOCYTE # 0.5 TH/MM3 (0-0.9); NEUT % 74.7 % (16.0-70.0); PLATELET COUNT 127 TH/MM3 (150-450); RED BLOOD COUNT 5.69 MIL/MM3 (4.50-5.90); RED CELL DISTRIBUTION WIDTH 15.7 % (11.6-17.2); WHITE BLOOD COUNT 6.3 TH/MM3 (4.0-11.0)
[2018-02-10 03:10] LABS: INTERNATIONAL NORMALIZED RATIO 1.1 RATIO; PROTHROMBIN TIME - PATIENT 10.9 SEC (9.8-11.6)
[2018-02-10 03:27] LABS: ALBUMIN 3.5 GM/DL (3.4-5.0); ALT (GPT) 31 U/L (12-78); AST (GOT) 14 U/L (15-37); BICARBONATE 28.3 MEQ/L (21.0-32.0); BLOOD UREA NITROGEN 21 MG/DL (7-18); CALCIUM 8.3 MG/DL (8.5-10.1); CHLORIDE 107 MEQ/L (98-107); GLOMERULAR FILTRATION RATE 55 ML/MIN (>89); GLUCOSE,RANDOM 95 MG/DL (74-106); SODIUM (NA) 141 MEQ/L (136-145)
[2018-02-10 03:32] LABS: ALKALINE PHOSPHATASE 63 U/L (45-117); TOTAL BILIRUBIN ADULT 0.6 MG/DL (0.2-1.0); TOTAL PROTEIN 6.8 GM/DL (6.4-8.2); TROPONIN I 0.02 NG/ML (0.02-0.05)
--- NOTE | 2018-02-10 06:54 | RADRPT ---
EXAM DATE: 02/10/2018 6:46 AM EDT AGE/SEX: 67 years / Male INDICATIONS: Abdomen pain. Post shunt placement. CLINICAL DATA: This is the patient's initial encounter. Patient reports that signs and symptoms have been present for 1 day and indicates a pain score of 6/10. MEDICAL/SURGICAL HISTORY: Cardiovascular disease. Cerebrovascular disease. Hypertension. ESTEBAN D Fusion, cervical. Inguinal hernia repair. SECTION SUPERVISOR Shunt ORAL CONTRAST: No oral contrast ingested. RADIATION DOSE: 15.23 CTDI (mGy) COMPARISON: No prior exams available for comparison. TECHNIQUE: Multiple contiguous axial images were obtained through the abdomen and pelvis following b olus infusion of 95 ml Omnipaque 350 (iohexol) nonionic water-soluble contrast as a single exam dos e. No oral contrast ingested. Using automated exposure control and adjustment of the mA and/or kV ac cording to patient size, the radiation dose was kept as low as reasonably achievable to obtain optima l diagnostic quality images. FINDINGS: Abdomen CT: The liver, spleen, pancreas, kidneys, adrenals are unremarkable. There is no evidence for any appreci able pathological adenopathy, free fluid, or bowel obstruction. SECTION SUPERVISOR shunt is present with tip in the right lower quadrant adjacent to the terminal ileum without any fluid collections at this site. There is moderate amount of stool in the colon. Pelvic CT: There is no evidence for mass, abscess formation, or any significant adenopathy within the pelvis. T here are tiny bone islands involving the symphysis pubi bilateral acetabulum and left femoral head. CONCLUSION: Essentially unremarkable study except for stool. Electronically signed by: Ada Odonnell MD 02/10/2018 6:52 AM EDT
[2018-02-10] MEDS ORDERED: MIRA3350 PO (07:13)
[2018-02-10 07:30] VITALS: BP 130/77; RESP 17; TEMP 97.8; O2SAT 99
== END 2018-02-10 07:30 | disposition home or self-care (01) ==
LOC: NEPE 00:49
DX: K59.00 Constipation, unspecified (principal); G91.2 (Idiopathic) normal pressure hydrocephalus; I10 Essential (primary) hypertension; I48.91 Unspecified atrial fibrillation; J45.909 Unspecified asthma, uncomplicated; K21.9 Gastro-esophageal reflux disease without esophagitis; Z86.73 Personal history of transient ischemic attack (TIA), and cerebral infarction without residual deficits; Z98.2 Presence of cerebrospinal fluid drainage device
CPT/HCPCS: 74177; 80053; 83690; 83735; 84484; 85025; 85610; 85730; 99285; Q9967

== ENCOUNTER 2018-02-14 11:53 | Emergency (ER) | payer MEDICARE ==
[~2018-02-14] VITALS: Ht 193 cm; Wt 112.0 kg
[~2018-02-14 11:53] MED LIST changes: +MIRA3350 PO
[2018-02-14 12:10] VITALS: BP 141/65; PULSE 67; RESP 18; TEMP 98.2; O2SAT 95
[2018-02-14] MEDS ORDERED: DIATRIZOATE MEGLUM/DIATRIZOATE SOD 9 ML CUP ONE (12:52)
[2018-02-14 13:19] LABS: AUTOMATED NEUTROPHIL # 3.7 TH/MM3 (1.8-7.7); BASOPHIL # 0.1 TH/MM3 (0-0.2); EOSINOPHIL # 0.3 TH/MM3 (0-0.4); EOSINOPHIL % 5.8 % (0.0-4.0); HEMATOCRIT 49.6 % (39.0-51.0); HEMOGLOBIN 16.8 GM/DL (13.0-17.0); LYMPH % 13.8 % (9.0-44.0); LYMPHOCYTE # 0.7 TH/MM3 (1.0-4.8); MEAN CELL VOLUME 83.9 FL (80.0-100.0); MEAN CORPUSCULAR HEMOGLOBIN 28.4 PG (27.0-34.0); MEAN CORPUSCULAR HGB CONC 33.9 % (32.0-36.0); MEAN PLATELET VOLUME 7.3 FL (7.0-11.0); MONO % 10.3 % (0.0-8.0); MONOCYTE # 0.6 TH/MM3 (0-0.9); NEUT % 69.1 % (16.0-70.0); PLATELET COUNT 145 TH/MM3 (150-450); RED BLOOD COUNT 5.91 MIL/MM3 (4.50-5.90); RED CELL DISTRIBUTION WIDTH 16.1 % (11.6-17.2); WHITE BLOOD COUNT 5.4 TH/MM3 (4.0-11.0)
[2018-02-14 13:33] LABS: BICARBONATE 25.4 MEQ/L (21.0-32.0); CALCIUM 8.6 MG/DL (8.5-10.1); CREATININE 1.4 MG/DL (0.60-1.30)
--- NOTE | 2018-02-14 13:37 | PD ---
HPI Chief Complaint: Pain: Acute or Chronic Time Seen by Provider: 12:19 Travel History International Travel<30 days: No Contact w/Intl Traveler<30days: No Traveled to known affect area: No History of Present Illness HPI This is a 67-year-old male with a history of normal pressure hydrocephalus, who is status post shunt revision 3 weeks prior, who presents today with complaints of abdominal distention and discomfort. The patient was seen 3 days ago for the same thing and was told that he had constipation. Patient states that while he did did not think that he had constipation, he still went home and did a fleets enema and took MiraLAX. He states he has had several bowel movements and does not feel constipated. The patient reports feeling a fullness in his abdomen especially around the abdominal incision site. The patient states that it is become much ramesh over the last 3 days and now he has noted a new out pouching on the right side lateral to his previous ventral hernia. The patient also reports that he has a pulling sensation in his right inguinal area and is concerned that this may be pushing on his previous hernia repair site. PFSH Past Medical History Hx Anticoagulant Therapy: Yes (PRADEXA) Arthritis: Yes Asthma: Yes Heart Rhythm Problems: Yes (ATR. 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 ING. HERNIA REP.) Body Medical Devices: REVIEW TRAINER SHUNT, HARDWARE CERVICAL & RIGHT FOOT Genitourinary Surgery: Yes (CYSTO, STONE RETRIEVAL) Neurologic Surgery: Yes (REVIEW TRAINER SHUNT, CERVICAL FUSION) Pacemaker: No Other Surgery: Yes (REVIEW TRAINER SHUNT) Social History Alcohol Use: Yes (COUPLE MARTINI'S DAILY) Tobacco Use: No Substance Use: No Allergies-Medications (Allergen,Severity, Reaction): Coded Allergies: penicillin G (Verified Allergy, Severe, ANAPHYLACTIC, 02/14/18) Sulfa (Sulfonamide Antibiotics) (Verified Allergy, Mild, 02/14/18) Reported Meds & Prescriptions Reported Meds & Active Scripts Active Miralax Powder (Polyethylene Glycol 3350 Powder) 17 Gm Powd 17 Gm PO DAILY Mix and dissolve one measuring cap-ful (17 grams) in water or juice. Methylphenidate ER 8 HR (Methylphenidate HCl) 20 Mg Tab 20 Mg PO TIDAC Reported Ambien (Zolpidem Tartrate) 10 Mg Tab 10 Mg PO HS PRN Topiramate 50 Mg Tab 50 Mg PO TID Pradaxa (Dabigatran) 150 Mg Cap 150 Mg PO BID Methylphenidate IR (Methylphenidate HCl) 20 Mg Tab 20 Mg PO BIDAC Losartan-Hydrochlorothiazide 100-12.5 Mg Tab 1 Tab PO DAILY Hydrocodone-Acetaminophen 10-325 mg Tab 2 Tab PO Q4H PRN Digoxin 0.125 Mg Tab 0.125 Mg PO DAILY Sotalol (Sotalol HCl) 120 Mg Tab 120 Mg PO TID Baclofen 10 Mg Tab 20 Mg PO BID Amlodipine (Amlodipine Besylate) 5 Mg Tab 5 Mg PO BID Gabapentin 300 Mg Cap 600 Mg PO TID Review of Systems Except as stated in HPI: all other systems reviewed are Neg General / Constitutional: No: Fever, Chills HENT: No: Headaches, Neck Pain Cardiovascular: No: Chest Pain or Discomfort, Palpitations Respiratory: No: Cough, Shortness of Breath Gastrointestinal: Positive: Nausea, Abdominal Pain, Other (Distention and protrusion of the right lateral abdominal wall.), No: Vomiting, Diarrhea Genitourinary: No: Frequency, Dysuria ( Pulling at his right inguinal site.) Musculoskeletal: No: Weakness, Pain Neurologic: No: Weakness, Headache Physical Exam Narrative GENERAL: Well-nourished, well-developed patient, no acute respiratory distress.. SKIN: Focused skin assessment warm/dry. HEAD: Normocephalic/atraumatic. EYES: No scleral icterus. No injection or drainage. NECK: Supple, trachea midline. CARDIOVASCULAR: Regular rate and rhythm without murmurs, gallops, or rubs. RESPIRATORY: Breath sounds equal bilaterally. No accessory muscle use. GASTROINTESTINAL: Abdomen soft, slightly distended. Patient has a well-healing horizontal scar in the mid abdomen. He does also have a large vertical ventral hernia that is reducible. Patient does have a 3 x 3.5" circular slightly elevated area on the right lateral abdominal wall. It is not tender to touch however it does appear to have a lipoma-like consistency. This is where the patient reports new distention. There is no rebound or guarding. MUSCULOSKELETAL: No cyanosis, or edema. NEUROLOGICAL: Awake and alert. Cranial nerves II through XII intact. Motor and sensory grossly within normal limits. Five out of 5 muscle strength in all muscle groups. Normal speech. Data Data Last Documented VS Vital Signs Date Time Temp Pulse Resp B/P (MAP) Pulse Ox O2 Delivery O2 Flow Rate FiO2 02/14/18 12:10 98.2 67 18 141/65 (90) 95 Orders Orders Complete Blood Count With Diff (02/14/18 12:44) Basic Metabolic Panel (Bmp) (02/14/18 12:44) Ct Abd/Pel W Iv Contrast(Rout) (02/14/18 12:44) Iv Access Insert/Monitor (02/14/18 12:44) Ecg Monitoring (02/14/18 12:44) Oximetry (02/14/18 12:44) Diatrizoate Liq ( Gastroview Liq) (02/14/18 12:52) Oral Contrast - Adult (02/14/18 12:53) Iohexol 350 Inj (Omnipaque 350 Inj) (02/14/18 14:43) Binder,Surg Abdominal Xxl Ea (02/14/18 16:19) Labs Laboratory Tests Test 02/14/18 12:55 White Blood Count 5.4 TH/MM3 Red Blood Count 5.91 MIL/MM3 Hemoglobin 16.8 GM/DL Hematocrit 49.6 % Mean Corpuscular Volume 83.9 FL Mean Corpuscular Hemoglobin 28.4 PG Mean Corpuscular Hemoglobin Concent 33.9 % Red Cell Distribution Width 16.1 % Platelet Count 145 TH/MM3 Mean Platelet Volume 7.3 FL Neutrophils (%) (Auto) 69.1 % Lymphocytes (%) (Auto) 13.8 % Monocytes (%) (Auto) 10.3 % Eosinophils (%) (Auto) 5.8 % Basophils (%) (Auto) 1.0 % Neutrophils # (Auto) 3.7 TH/MM3 Lymphocytes # (Auto) 0.7 TH/MM3 Monocytes # (Auto) 0.6 TH/MM3 Eosinophils # (Auto) 0.3 TH/MM3 Basophils # (Auto) 0.1 TH/MM3 CBC Comment DIFF FINAL Differential Comment Blood Urea Nitrogen 27 MG/DL Creatinine 1.40 MG/DL Random Glucose 116 MG/DL Calcium Level 8.6 MG/DL Sodium Level 141 MEQ/L Potassium Level 4.2 MEQ/L Chloride Level 106 MEQ/L Carbon Dioxide Level 25.4 MEQ/L Anion Gap 10 MEQ/L Estimat Glomerular Filtration Rate 51 ML/MIN MDM Medical Decision Making Medical Screen Exam Complete: Yes Emergency Medical Condition: Yes Differential Diagnosis Incarcerated hernia versus ascites versus intra-abdominal fluid buildup. Narrative Course 67-year-old male status post REVIEW TRAINER shunt revision on the eighth of last month, presents here with complaints of abdominal "tightness". Patient feels as though the muscle was closed to tight. He also is concerned that there may be fluid buildup in his belly. He had a CAT scan 3 days ago which showed no evidence of intra-abdominal fluid. Repeat CAT scan today shows no evidence of acute intra-abdominal fluid. There is no evidence of bowel obstruction. There is a small left inguinal hernia without incarceration. Dr. Mario Dash, on- call surgeon was gracious enough to come down and see the patient. He discussed the findings of the CT scan and the likelihood that this could possibly be adhesional pain. He at this point does not recommend any type of surgical intervention. The patient is adamant that he thinks that this may be related to the REVIEW TRAINER shunt tube. He is stating that if this discomfort continues that he will want it removed. I have informed him at this point it is not an emergency. I have recommended that he follow-up with Dr. Villanueva as well as with Dr. Dash if he does wish to possibly have a laparoscopic procedure to evaluate for possible etiology of his discomfort. The patient did not seem completely satisfied with this however at this point there is nothing emergent that can be done at this point. I will place an abdominal binder on him for comfort. He is instructed to use this while he is ambulatory. Diagnosis Primary Impression: Abdominal discomfort Additional Impression: Recent REVIEW TRAINER shunt revision Referrals: Mario Dash MD Additional Instructions: Wear a binder when amatory. Return if fevers, chills. Follow-up with Dr. Villanueva and Dr. Dash. Disposition: 01 DISCHARGE HOME Condition: Stable Gerry Lizama MD Feb 14, 2018 13:37
[2018-02-14] MEDS ORDERED: IOHEXOL 350 MG/ML 10 ML VIAL (for RAD DIAG) IVCONTRAST ONE (14:43)
--- NOTE | 2018-02-14 14:50 | RADRPT ---
EXAM DATE: 02/14/2018 2:42 PM EDT AGE/SEX: 67 years / Male INDICATIONS: Discomfort around surgical site. Status post SUPERVISOR POWDERED SUGAR shunt. CLINICAL DATA: This is the patient's initial encounter. Patient reports that signs and symptoms have been present for 3 days and indicates a pain score of 5/10. MEDICAL/SURGICAL HISTORY: Hypertension. Hydrocephalus. . SUPERVISOR POWDERED SUGAR shunt. ORAL CONTRAST: No oral contrast ingested. RADIATION DOSE: 15.89 CTDI (mGy) [place] [facility] [place]. . TECHNIQUE: Multiple contiguous axial images were obtained through the abdomen and pelvis following b olus infusion of 91 ml Omnipaque 350 (iohexol) nonionic water-soluble contrast as a single exam dos e. No oral contrast ingested. Using automated exposure control and adjustment of the mA and/or kV ac cording to patient size, the radiation dose was kept as low as reasonably achievable to obtain optima l diagnostic quality images. FINDINGS: The limited portion of lung base visualized demonstrates a small area of atelectasis in the right low er lobe. The appearance of the liver, spleen, pancreas, adrenal glands and kidneys is within normal limits. The visualized loops of small and large bowel in the upper abdomen demonstrate a moderate amount of s tool within the colon but are otherwise unremarkable. Incidental note is made of the tubing from a ventriculoperitoneal shunt. There is minimal inflammator y change around the shunt tubing just as it enters the peritoneal cavity. No fluid collection is seen . The abdominal aorta is normal in caliber. There is no retroperitoneal adenopathy. There is no free fluid within the pelvis. No iliac or inguinal adenopathy is seen. There is a small l eft inguinal hernia. No free air is seen within the abdomen. The visualized bony structures demonstrate degenerative changes in the lumbar spine but are grossly i ntact. CONCLUSION: 1. There is minimal induration of the soft tissues around the ventriculoperitoneal shunt tubing as i t traverses from the abdominal wall into the peritoneal cavity. I see no evidence of hemorrhage or ot her significant fluid collection around the tubing. This is unchanged from previous of 02/10/2018. 2. Degenerative changes in the lumbar spine. 3. Small left inguinal hernia. Electronically signed by: Get Hendricks MD 02/14/2018 2:49 PM EDT
[2018-02-14 17:16] VITALS: BP 138/62; PULSE 68; RESP 14; O2SAT 98
== END 2018-02-14 17:18 | disposition home or self-care (01) ==
LOC: NEPE 11:53
DX: R10.9 Unspecified abdominal pain (principal); R11.0 Nausea; K43.9 Ventral hernia without obstruction or gangrene; K40.90 Unilateral inguinal hernia, without obstruction or gangrene, not specified as recurrent; Z98.2 Presence of cerebrospinal fluid drainage device; G91.2 (Idiopathic) normal pressure hydrocephalus; I10 Essential (primary) hypertension; I48.91 Unspecified atrial fibrillation; J45.909 Unspecified asthma, uncomplicated; Z86.73 Personal history of transient ischemic attack (TIA), and cerebral infarction without residual deficits; Z88.2 Allergy status to sulfonamides; Z88.0 Allergy status to penicillin; Z79.899 Other long term (current) drug therapy
CPT/HCPCS: 74177; 80048; 85025; 99284; Q9963; Q9967

== ENCOUNTER 2018-02-14 22:15 | Emergency (ER) | payer MEDICARE ==
[~2018-02-14] VITALS: Ht 190.5 cm; Wt 112.0 kg
[2018-02-14 23:07] VITALS: BP 141/72; PULSE 63; RESP 20; TEMP 98.7; O2SAT 97
--- NOTE | 2018-02-15 00:10 | PD ---
HPI Chief Complaint: Edema Time Seen by Provider: 23:37 Travel History International Travel<30 days: No Contact w/Intl Traveler<30days: No Traveled to known affect area: No History of Present Illness HPI 67-year-old male patient with history of RN REHABILITATION shunt for normal pressure hydrocephalus, re-placed by Dr. Villanueva 3 weeks ago, has been in and out of the hospital in the last few days because he feels like his shunt is not working properly, draining too much fluid, had been in earlier this evening complaining of abdominal distention or discomfort, had a full workup with CAT scan of the abdomen done by Dr. Lizama which were all unremarkable. Dr. Dash had seen the patient as well and had recommended that the patient follow-up as an outpatient with him and Dr. Villanueva. Patient returns today because he states that he is having some of the same symptoms, is having some dizziness, and states that he had been told before that he may have the symptoms of the shunt is draining too much fluid. He denies any current headache, and he actually states that the abdominal discomfort has now gone away in the ER. He is not running any fevers, vomiting, or have other issues. He states that he thinks his shunt is over functioning and feels like his shunt may be in too tight, and wants his shunt to be readjusted. Modifying Factors: None Associated Signs & Symptoms: Abdominal bloating, dizziness, wants his shunt evaluated Risk Factors: RN REHABILITATION shunt, seen earlier today for same issues PFSH Past Medical History Hx Anticoagulant Therapy: Yes (PRADEXA) Arthritis: Yes Asthma: Yes Heart Rhythm Problems: Yes (ATR. 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 ING. HERNIA REP.) Body Medical Devices: RN REHABILITATION SHUNT, HARDWARE CERVICAL & RIGHT FOOT Genitourinary Surgery: Yes (CYSTO, STONE RETRIEVAL) Neurologic Surgery: Yes (RN REHABILITATION SHUNT, CERVICAL FUSION) Pacemaker: No Other Surgery: Yes (RN REHABILITATION SHUNT) Social History Alcohol Use: Yes (COUPLE MARTINI'S DAILY) Tobacco Use: No Substance Use: No Allergies-Medications (Allergen,Severity, Reaction): Coded Allergies: penicillin G (Verified Allergy, Severe, ANAPHYLACTIC, 02/14/18) Sulfa (Sulfonamide Antibiotics) (Verified Allergy, Mild, 02/14/18) Reported Meds & Prescriptions Reported Meds & Active Scripts Active Miralax Powder (Polyethylene Glycol 3350 Powder) 17 Gm Powd 17 Gm PO DAILY Mix and dissolve one measuring cap-ful (17 grams) in water or juice. Methylphenidate ER 8 HR (Methylphenidate HCl) 20 Mg Tab 20 Mg PO TIDAC Reported Ambien (Zolpidem Tartrate) 10 Mg Tab 10 Mg PO HS PRN Topiramate 50 Mg Tab 50 Mg PO TID Pradaxa (Dabigatran) 150 Mg Cap 150 Mg PO BID Methylphenidate IR (Methylphenidate HCl) 20 Mg Tab 20 Mg PO BIDAC Losartan-Hydrochlorothiazide 100-12.5 Mg Tab 1 Tab PO DAILY Hydrocodone-Acetaminophen 10-325 mg Tab 2 Tab PO Q4H PRN Digoxin 0.125 Mg Tab 0.125 Mg PO DAILY Sotalol (Sotalol HCl) 120 Mg Tab 120 Mg PO TID Baclofen 10 Mg Tab 20 Mg PO BID Amlodipine (Amlodipine Besylate) 5 Mg Tab 5 Mg PO BID Gabapentin 300 Mg Cap 600 Mg PO TID Review of Systems Except as stated in HPI: all other systems reviewed are Neg Physical Exam Narrative GENERAL: Well-developed elderly white male patient currently in mild distress. Awake and oriented 3. SKIN: Focused skin assessment warm/dry. HEAD: Atraumatic. Normocephalic. EYES: Pupils equal and round. No scleral icterus. No injection or drainage. ENT: No nasal bleeding or discharge. Mucous membranes pink and moist. NECK: Trachea midline. No JVD. CARDIOVASCULAR: Regular rate and rhythm. No murmur appreciated. RESPIRATORY: No accessory muscle use. Clear to auscultation. Breath sounds equal bilaterally. GASTROINTESTINAL: Abdomen soft, non-tender, nondistended. Hepatic and splenic margins not palpable. No palpable hernial masses currently. MUSCULOSKELETAL: No obvious deformities. No clubbing. No cyanosis. No edema. NEUROLOGICAL: Awake and alert. No obvious cranial nerve deficits. Motor grossly within normal limits. Normal speech. PSYCHIATRIC: Appropriate mood and affect; insight and judgment normal. Data Data Last Documented VS Vital Signs Date Time Temp Pulse Resp B/P (MAP) Pulse Ox O2 Delivery O2 Flow Rate FiO2 02/14/18 23:07 98.7 63 20 141/72 (95) 97 Room Air Orders Orders Ct Brain W/O Iv Contrast(Rout) (02/14/18 23:38) Ed Discharge Order (02/15/18 01:02) MDM Medical Decision Making Medical Screen Exam Complete: Yes Emergency Medical Condition: Yes Medical Record Reviewed: Yes Interpretation(s) Last [address] 02/14/18 5578 Signed Impressions: CONCLUSION: 1. Ventriculostomy tubes as described above. The lateral ventricles are slitli ke. This appearance is unchanged. 2. Sulcal widening consistent with some degree of atrophy. Differential Diagnosis Dizziness, abdominal bloating: Shunt malfunction versus constipation Narrative Course Vital signs are stable in the ER. He did not want me to do an EKG or chest x- ray on him today, states that has been done recently. At this point, CAT scan of the brain has not been done in a while and it was done today to evaluate the shunt. It shows slitlike ventricles which were unchanged from previous. The patient appears to be in place. Case was discussed with Dr. Villanueva who is covering for Dr. Villanueva and he states that he would not do anything additional currently. My plan would be to release the patient would follow-up to Dr. Villanueva and Dr. Dash as previously discussed with the patient. Return for new issues as needed. The plan has been discussed with him and he states understanding. Diagnosis Primary Impression: RN REHABILITATION (ventriculoperitoneal) shunt status Additional Instructions: He need to follow-up with Dr. Villanueva and Dr. Dash regarding ongoing problems. Return for worsening in his issues as needed. Disposition: 01 DISCHARGE HOME Condition: Stable Arnold Hernandez MD Feb 15, 2018 00:10
--- NOTE | 2018-02-15 00:33 | RADRPT ---
EXAM DATE: 02/14/2018 11:48 PM EDT AGE/SEX: 67 years / Male INDICATIONS: Dizziness with headaches. CLINICAL DATA: This is the patient's initial encounter. Patient reports that signs and symptoms have been present for 1 day and indicates a pain score of 6/10. MEDICAL/SURGICAL HISTORY: Hypertension. Hydrocephalus . RN DOCUMENTATION shunt RADIATION DOSE: 56.35 CTDI (mGy) COMPARISON: [facility] [place]/22/2018. . TECHNIQUE: CT of the head without contrast. Using automated exposure control and adjustment of the mA and/or kV according to patient size, radiation dose was kept as low as reasonably achievable to ob tain optimal diagnostic quality images. FINDINGS: Cerebrum: There are ventriculostomy tubes in place from the right frontal and right parietal approac hes. The right frontal ventriculostomy tube extends into the body of the left lateral ventricle. The right parietal ventriculostomy tube extends into the posterior body of the right lateral ventricle. T he lateral ventricles are slitlike. The cortical sulci are mildly widened. No evidence of midline zoey ft, mass lesion, hemorrhage or acute infarction. No extraaxial fluid collections are seen. Posterior Fossa: The cerebellum and brainstem are intact. The 4th ventricle is midline. The cerebe llopontine angle is unremarkable. Extracranial: The visualized portion of the orbits is intact. Skull: The calvaria is intact. No evidence of skull fracture. CONCLUSION: 1. Ventriculostomy tubes as described above. The lateral ventricles are slitlike. This appearance is unchanged. 2. Sulcal widening consistent with some degree of atrophy. Electronically signed by: Jhony Phan MD 02/15/2018 12:32 AM EDT
== END 2018-02-15 01:23 | disposition home or self-care (01) ==
LOC: NEPE 22:15
DX: Z98.2 Presence of cerebrospinal fluid drainage device (principal); G91.2 (Idiopathic) normal pressure hydrocephalus; I10 Essential (primary) hypertension; I48.91 Unspecified atrial fibrillation; J45.909 Unspecified asthma, uncomplicated; Z86.73 Personal history of transient ischemic attack (TIA), and cerebral infarction without residual deficits; Z88.2 Allergy status to sulfonamides; Z88.0 Allergy status to penicillin; Z79.899 Other long term (current) drug therapy
CPT/HCPCS: 70450

== ENCOUNTER 2018-02-15 15:16 | Emergency (ER) | payer MEDICARE ==
[~2018-02-15] VITALS: Ht 193 cm; Wt 110.0 kg
[~2018-02-15 15:16] MED LIST changes: -HYDR-3516 PO
[2018-02-15 15:22] VITALS: BP 117/65; PULSE 66; RESP 18; TEMP 98.2; O2SAT 97
--- NOTE | 2018-02-15 15:58 | PD ---
HPI Chief Complaint: Medical Clearance Time Seen by Provider: 15:30 Travel History International Travel<30 days: No Contact w/Intl Traveler<30days: No Traveled to known affect area: No History of Present Illness HPI Patient comes in complaining that he is shunt is over draining, he states that he was seen here last night on February 14 and he had a CAT scan that showed slitlike ventricles. This is all verbatim as per the patient's report. He states that he thinks that he needs to have his shunt reprogrammed so that is not draining as much. He also comes in complaining of increased puffiness of her sensation to his abdomen which he believes is from the peritoneal shunt that is draining to his abdomen. Patient denies any fever, rash, neck pain, headache, nausea vomiting, patient denies any abdominal pain. PFSH Past Medical History Hx Anticoagulant Therapy: Yes (PRADEXA) Arthritis: Yes Asthma: Yes Heart Rhythm Problems: Yes (ATR. 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 ING. HERNIA REP.) Body Medical Devices: UPSTAIRS MAID SHUNT, HARDWARE CERVICAL & RIGHT FOOT Genitourinary Surgery: Yes (CYSTO, STONE RETRIEVAL) Neurologic Surgery: Yes (UPSTAIRS MAID SHUNT, CERVICAL FUSION) Pacemaker: No Other Surgery: Yes (UPSTAIRS MAID SHUNT) Social History Alcohol Use: Yes (COUPLE MARTINI'S DAILY) Tobacco Use: No Substance Use: No Allergies-Medications (Allergen,Severity, Reaction): Coded Allergies: penicillin G (Verified Allergy, Severe, ANAPHYLACTIC, 02/15/18) Sulfa (Sulfonamide Antibiotics) (Verified Allergy, Mild, 02/15/18) Reported Meds & Prescriptions Reported Meds & Active Scripts Active Miralax Powder (Polyethylene Glycol 3350 Powder) 17 Gm Powd 17 Gm PO DAILY Mix and dissolve one measuring cap-ful (17 grams) in water or juice. Methylphenidate ER 8 HR (Methylphenidate HCl) 20 Mg Tab 20 Mg PO TIDAC Reported Ambien (Zolpidem Tartrate) 10 Mg Tab 10 Mg PO HS PRN Topiramate 50 Mg Tab 50 Mg PO TID Pradaxa (Dabigatran) 150 Mg Cap 150 Mg PO BID Methylphenidate IR (Methylphenidate HCl) 20 Mg Tab 20 Mg PO BIDAC Losartan-Hydrochlorothiazide 100-12.5 Mg Tab 1 Tab PO DAILY Hydrocodone-Acetaminophen 10-325 mg Tab 2 Tab PO Q4H PRN Digoxin 0.125 Mg Tab 0.125 Mg PO DAILY Sotalol (Sotalol HCl) 120 Mg Tab 120 Mg PO TID Baclofen 10 Mg Tab 20 Mg PO BID Amlodipine (Amlodipine Besylate) 5 Mg Tab 5 Mg PO BID Gabapentin 300 Mg Cap 600 Mg PO TID Review of Systems General / Constitutional: No: Fever Eyes: No: Visual changes HENT: No: Headaches Cardiovascular: No: Chest Pain or Discomfort Respiratory: No: Shortness of Breath Gastrointestinal: Positive: Other (Bloating sensation to abdomen, patient has a UPSTAIRS MAID shunt drains into the abdomen ) Genitourinary: No: Dysuria Musculoskeletal: No: Pain Skin: No Rash Neurologic: No: Weakness Psychiatric: No: Depression Endocrine: No: Polydipsia Hematologic/Lymphatic: No: Easy Bruising Physical Exam Narrative GENERAL: SKIN: Warm and dry. HEAD: Atraumatic. Normocephalic. EYES: Pupils equal and round. No scleral icterus. No injection or drainage. ENT: No nasal bleeding or discharge. Mucous membranes pink and moist. NECK: Trachea midline. No JVD. CARDIOVASCULAR: Regular rate and rhythm. RESPIRATORY: No accessory muscle use. Clear to auscultation. Breath sounds equal bilaterally. GASTROINTESTINAL: Abdomen soft, non-tender, nondistended MUSCULOSKELETAL: Extremities without clubbing, cyanosis, or edema. No obvious deformities. NEUROLOGICAL: Awake and alert. No obvious cranial nerve deficits. Motor grossly within normal limits. Five out of 5 muscle strength in the arms and legs. Normal speech. PSYCHIATRIC: Appropriate mood and affect; insight and judgment normal. Data Data Last Documented VS Vital Signs Date Time Temp Pulse Resp B/P (MAP) Pulse Ox O2 Delivery O2 Flow Rate FiO2 02/15/18 15:32 66 18 02/15/18 15:22 98.2 117/65 (82) 97 MDM Medical Decision Making Medical Screen Exam Complete: Yes Emergency Medical Condition: Yes Medical Record Reviewed: Yes Differential Diagnosis n/a Narrative Course The patient and he is CT scan from February 14 compared with earlier in January and essentially was read by radiologist as unchanged when he came to the slitlike ventricle size. Additionally Dr. Sandoval neurosurgeon on-call reviewed the images, and does not see any acute drastic change that requires admission nor even observation. He advises that the patient go to Dr. Villanueva's office on Saturday at which time reprogramming of the shot may occur if necessary. Diagnosis Primary Impression: Normal pressure hydrocephalus Additional Impression: S/P ventriculoperitoneal shunt Referrals: Daniel Villanueva MD Patient Instructions: General Instructions Additional Instructions: Your advised to call Dr. villanueva;, and make an appointment for Saturday for further evaluation of his shunt Disposition: 01 DISCHARGE HOME Condition: Stable Ramon Villafuerte MD Feb 15, 2018 15:58
[2018-02-15] MEDS ORDERED: FUROSEMIDE 40 MG TAB PO ONE (17:00)
[2018-02-15 17:04] VITALS: BP 145/72; TEMP 98
== END 2018-02-15 17:08 | disposition home or self-care (01) ==
LOC: NEPE 15:16
DX: G91.2 (Idiopathic) normal pressure hydrocephalus (principal); Z98.2 Presence of cerebrospinal fluid drainage device
CPT/HCPCS: 99283

== ENCOUNTER → 2018-03-12 | Day surgery (SDC) | payer MEDICARE ==
[~2018-03-12] VITALS: Ht 193 cm; Wt 114.9 kg
[~2018-03-12] MED LIST changes: +*morphine SULFATE 4 MG/ML PERIprocedure ONLY ONE; +ACETAMINOPHEN 1000 MG/100 ML 100 ML IV SCH; +ACETAMINOPHEN/HYDROcodone 325 MG/7.5 MG TAB PO PRN; +APREPITANT 40 MG CAP ONE; +BUPIVACAINE/EPINEPHRINE 0.25% 50 ML VIAL ONE; +CHLORHEXIDINE GLUCONATE 2 % 1 PACK (2 CLOTHS) TOPICAL PRN; +DEXAMETHASONE SOD PHOS 4 MG/ML VIAL IV ONE; +DO NOT ADM ANY ANTICOAGULANT DRUGS PRN; +FAMOTIDINE 20 MG/2 ML VIAL ONE; +GLYCOPYRROLATE 1 MG/5 ML SYRINGE IV PUSH ONE; +HYDROmorphone HCL PF 2 MG/ML VIAL IV PRN; +HYDROmorphone HCL PF 2 MG/ML VIAL ONE; +KETOROLAC TROMETHAMINE 30 MG/ML (IVP) VIAL IV PUSH ONE; +LACTATED RINGER'S 1000 ML IV PRN; +LIDOCAINE HCL 1% PF 5 ML SYRINGE OTHER ONE; -METH20TA PO; +METOPROLOL TARTRATE 25 MG TAB PO PRN; +NEOSTIGMINE 5 MG/5 ML SYRINGE IV PUSH ONE; +ONDANSETRON HCL 4 MG/2 ML VIAL IV ONE; +ONDANSETRON HCL 4 MG/2 ML VIAL IV PUSH PRN; +PHENYLEPH/NS 1000 MCG/10 ML SYR IV ONE; +POVIDONE IODINE 5% (ANTISEPSIS KIT) 4 APPLICATIONS EACH NARE PRN; +PROPOFOL 200 MG/20 ML AMP IV ONE; +ROCURONIUM INJ 50 MG/5 ML SYRINGE IV PUSH ONE; +SODIUM CHLORID 0.9% 500 ML IV PRN; +VANCOMYCIN 1000 MG/NS 250 ML ON-CALL IV SCH; +ePHEDrine/NS 25 MG/5 ML SYRINGE IV ONE
[2018-03-12 06:56] LABS: AUTOMATED NEUTROPHIL # 4.2 TH/MM3 (1.8-7.7); BASOPHIL # 0.1 TH/MM3 (0-0.2); EOSINOPHIL # 0.6 TH/MM3 (0-0.4); EOSINOPHIL % 8.2 % (0.0-4.0); HEMATOCRIT 44.2 % (39.0-51.0); HEMOGLOBIN 15.1 GM/DL (13.0-17.0); LYMPH % 20.2 % (9.0-44.0); LYMPHOCYTE # 1.4 TH/MM3 (1.0-4.8); MEAN CELL VOLUME 84.5 FL (80.0-100.0); MEAN CORPUSCULAR HEMOGLOBIN 28.9 PG (27.0-34.0); MEAN CORPUSCULAR HGB CONC 34.2 % (32.0-36.0); MONO % 8.8 % (0.0-8.0); MONOCYTE # 0.6 TH/MM3 (0-0.9); NEUT % 61.8 % (16.0-70.0); PLATELET COUNT 144 TH/MM3 (150-450); RED BLOOD COUNT 5.22 MIL/MM3 (4.50-5.90); RED CELL DISTRIBUTION WIDTH 15.8 % (11.6-17.2); WHITE BLOOD COUNT 6.9 TH/MM3 (4.0-11.0)
[2018-03-12 07:23] LABS: BICARBONATE 26.8 MEQ/L (21.0-32.0); CALCIUM 8.9 MG/DL (8.5-10.1); CREATININE 1.33 MG/DL (0.60-1.30)
[2018-03-12 07:33] LABS: BANDS 2 % (0-6); LYMPHOCYTES 18 % (9-44); METAMYELOCYTES 1 % (0-1); MONOCYTES 12 % (0-8); MYELOCYTES 3 % (0-0); NEUTROPHIL # MANUAL DIFF 4.4 TH/MM3 (1.8-7.7); POLYS (SEG NEUTROPHILS) 58 % (16-70)
[2018-03-12 11:39] VITALS: BP 122/60; PULSE 58; RESP 20; TEMP 97.8; O2SAT 96
--- NOTE | 2018-03-12 19:22 | MP ---
cc: Rishi Mccarthy MD,Rishi Villanueva,Daniel Tanner MD DATE OF OPERATION: 03/12/2018 PROCEDURES: 1. Diagnostic laparoscopy with laparoscopic lysis of adhesions. 2, Examination of peritoneal portion of ROOF MECHANIC shunt. ANESTHESIA: General endotracheal SURGEON: Rishi Mccarthy MD ESTIMATED BLOOD LOSS: 5 mL FLUIDS: 800 mL crystalloid. COMPLICATIONS: None. DRAINS: None. SPECIMENS: None. FINDINGS: No adhesions around both shunts. More midline shunt tip was over the lateral segment of the left lobe of the liver. More lateral shunt was freely open in the abdomen. No omentum or other structures were wrapped around either of these shunts. PROCEDURE IN DETAIL: The patient was taken to the operating room, and placed on the operating table in the supine position. After an adequate level of general endotracheal anesthesia was achieved, the abdomen was prepped and draped in the usual fashion. Timeout was taken confirming the correct patient, site, and procedure to be performed. An incision was made to the left of the umbilicus after injecting with local anesthetic. A 5 mm trocar was inserted and, under direct vision, the trocar entered the abdominal cavity under direct vision uneventfully. The abdomen was insufflated. Two additional 5 mm trocars were placed, with the first toward the right lower quadrant at the midline and the second in the left upper quadrant away from all of the peritoneal shunt sites. Both shunts were seen to be freely mobile within the abdominal cavity. The more medial shunt was seen to be over the lateral segment of the left lobe of the liver. The more lateral shunt was seen to be freely mobile in the abdominal cavity and was not occluded by omentum. The patient was placed in Trendelenburg position as he was reporting a sensation of fluid collecting in the lower abdomen. Careful examination of the lower abdomen revealed no fluid whatsoever. The left lower quadrant, the cul-de-sac and the right lower quadrant were all examined and seen to be clean and dry. No free fluid was seen in the abdominal cavity. Specifically, above the dome of the liver no fluid was seen. There was no fluid seen in the gutters. At this point, the patient was noted to have a few adhesions along the right lateral abdominal wall with the omentum stuck to the wall. It was felt that this may have been causing some discomfort as was a loop of ileum in the right lower quadrant up against the abdominal wall above the pelvis. The omentum was taken down with the Harmonic scalpel and the ileum was taken down sharply with scissors. Care was taken to avoid any bleeding if at all possible and any injury to bowel or omentum. With hemostasis assured and loop of ileum taken down completely, no other pathology was noted. It is significant, however, that the patient had significant amount of stool in his distal transverse, descending, and sigmoid colon down toward the pelvis. This may have been causing some of the patient's sensations of fullness in the lower abdomen. At this point, insufflation was discontinued and the trocars were removed under direct vision. No bleeding was noted from the trocar sites. Prior to removal of the trocars, the remaining local anesthetic was injected through the trocar site over where the adhesions had been taken down. After removal of the trocars and complete desufflation of the abdomen, the trocar sites were closed at the skin with 4-0 Vicryl in an interrupted buried fashion. All sites were dressed with Steri-Strips. The patient was extubated and taken back to the recovery room in stable condition. He tolerated the procedure well and remained hemodynamically stable throughout. MD ISABELA Briggs/ , 06:56 PM , 07:21 PM
--- NOTE | 2018-03-12 20:20 | EKG ---
Date Performed: 03/12/2018 Time Performed: 06:36:48 PTAGE: 68 years EKG: Sinus bradycardia with borderline 1st degree A-V block Left axis deviation IV conduction de fect Abnormal ECG Since the PREVIOUS TRACING , no significant change noted DOCTOR: Peace Faith Interpretating Date/Time 03/12/2018 20:18:01
== END | disposition home or self-care (01) ==
LOC: HSDC 05:29
PROVIDERS: ATTEND Surgery Trauma Surgery
DX: R10.9 Unspecified abdominal pain (principal); K66.0 Peritoneal adhesions (postprocedural) (postinfection); K42.9 Umbilical hernia without obstruction or gangrene; Z98.2 Presence of cerebrospinal fluid drainage device; I10 Essential (primary) hypertension; Z86.73 Personal history of transient ischemic attack (TIA), and cerebral infarction without residual deficits; Z01.810 Encounter for preprocedural cardiovascular examination; Z01.818 Encounter for other preprocedural examination
CPT/HCPCS: 00840; 44180; 80048; 85007; 85027; 93005; J0131; J1100; J1170; J1885; J2270; J2370; J2405; J2710; J3010; J3370; J7050; J7120; J8501